=== PATIENT | female | born 1965 | race Caucasian/White ===

== ENCOUNTER 2020-07-23 15:07 | Inpatient (IN) | payer OTHER ==
--- OUTSIDE RECORDS SUMMARY | 2020-07-23 15:10 | XMS REPORT | Continuity of Care Document ---
:1965 Author Organization [facility] t Address [address] [place] [address] Care Team Providers Name Role Phone Unavailable Unavailable Unavailable Problems Condition Condition Condition Status Onset Resolution Last Treating Co mments Source Name Details Category Date Date Treatment Clinician Date Obesity Obesity Problem Active [facility] Essential Essential Problem Active [facility] hypertensi Hypertensi da on on [facility] Abnormal Abnormal Problem Active [facility] liver Liver da function Function Medica l Group Osteoarthr Osteoarthr Problem Active [facility] it[facility] Impaired Impaired Problem Active [facility] fasting Fasting da glycemia Glycemia Medica l Group Pain in Pain in Problem Active [facility] left knee Left Knee [facility] Allergies, Adverse Reactions, Alerts Allergy Allergy Status Severity Reaction(s) Onset Inactive Treating Comm ents Source Name Type Date Date Clinician PENICILL Allergy Active [facility] da [facility]stanc [facility] e [facility] SULFA Allergy Active [facility] (SULFONA to da MIDE substan Medical ANTIBIOT e Group ICS) Social History Smoking Status Start Date Stop Date Source Never Smoker [facility] Medications Ordered Filled Start Stop Current Ordering Indication Dosage Frequency Signature Comments Components Source Medication Medication Date Date Medication? Clinician (SIG) Name Name Bystolic 10 Bystolic 10 No Bystolic [facility] mg tablet mg tablet 10 mg da TAKE 1 TAKE 1 tablet Medical TABLET BY TABLET BY TAKE 1 Evans up MOUTH EVERY MOUTH EVERY TABLET BY DAY DAY MOUTH EVERY DAY diclofenac diclofenac No diclofenac [facility] 1 % topical 1 % topical 1 % d a gel APPLY 2 gel APPLY 2 topical Medical G TWICE A G TWICE A gel APPLY Group DAY BY DAY BY 2 G TWICE TOPICAL TOPICAL A DAY BY ROUTE ROUTE TOPICAL DIRECTED. DIRECTED. ROUTE DIRECTED. diclofenac diclofenac No diclofenac [facility] sodium 75 sodium 75 sodium 75 da mg mg mg Medical tablet,bertha tablet,bertha tablet,del Group yed release yed release ayed TAKE 1 TAKE 1 release TABLET BY TABLET BY TAKE 1 MOUTH TWICE MOUTH TWICE TABLET BY A DAY A DAY MOUTH TWICE A DAY ipratropium ipratropium No ipratropiu [facility] 0.5 0.5 m 0.5 da mg-albutero mg-albutero mg-albuter Medical l 3 mg (2.5 l 3 mg (2.5 ol 3 mg Group mg base)/3 mg base)/3 (2.5 mg mL mL base)/3 mL nebulizatio nebulizatio nebulizati n soln n soln on soln Inhale 3 mL Inhale 3 mL Inhale 3 4 times a 4 times a mL 4 times day by day by a day by nebulizatio nebulizatio nebulizati n route as n route as on route needed for needed for as needed 30 days. 30 days. for 30 days. phentermine phentermine No phentermin [facility] 37.5 mg 37.5 mg e 37.5 mg da tablet TAKE tablet TAKE tablet Medical 1 TABLET(S) 1 TABLET(S) TAKE 1 Group EVERY DAY EVERY DAY TABLET(S) BY ORAL BY ORAL EVERY DAY ROUTE ROUTE BY ORAL BEFORE BEFORE ROUTE MEALS MEALS BEFORE MEALS Symbicort Symbicort No Symbicort [facility] 160 mcg-4.5 160 mcg-4.5 160 d a mcg/actuati mcg/actuati mcg-4.5 Medical on HFA on HFA mcg/actuat Group aerosol aerosol ion HFA inhaler inhaler aerosol Inhale 2 Inhale 2 inhaler puffs twice puffs twice Inhale 2 a day by a day by puffs inhalation inhalation twice a route for route for day by 30 days. 30 days. inhalation route for 30 days. tramadol 50 tramadol 50 No tramadol [facility] mg tablet mg tablet 50 mg da TAKE 1 TAKE 1 tablet Medical TABLET BY TABLET BY TAKE 1 Evans up MOUTH THREE MOUTH THREE TABLET BY TIMES A DAY TIMES A DAY MOUTH NEEDED NEEDED THREE TIMES A DAY NEEDED triamcinolo triamcinolo No triamcinol [facility] ne ne one da acetonide acetonide acetonide Medical 0.1 % 0.1 % 0.1 % Group topical topical topical cream APPLY cream APPLY cream A THIN A THIN APPLY A LAYER TO LAYER TO THIN LAYER AFFECTED AFFECTED TO AREA TWICE AREA TWICE AFFECTED A DAY A DAY AREA TWICE A DAY Immunizations Ordered Immunization Filled Immunization Date Status Commen ts Source Name Name Tdap Tdap 2018-12-28 Completed [facility] Tdap Tdap 2018-12-26 Completed [facility] 12:11[facility]12 [facility] Vital Signs Vital Name Observation Time Observation Value Comments Source Height 2020-05-28 00:00:00 66 [in_i] [facility] BMI (Body Mass 2020-05-28 00:00:00 46.3 kg/m2 [facility] Body Weight 2020-05-28 00:00:00 4592 [oz_av] [facility] Height 2020-04-25 00:00:00 66 [in_i] [facility] BMI (Body Mass 2020-04-25 00:00:00 45.5 kg/m2 [facility] Body Weight 2020-04-25 00:00:00 4512 [oz_av] [facility] Height 2020-02-27 00:00:00 66 [in_i] [facility] BMI (Body Mass 2020-02-27 00:00:00 43.9 kg/m2 [facility] Body Weight 2020-02-27 00:00:00 4352 [oz_av] [facility] Height 2020-02-07 00:00:00 66 [in_i] [facility] BMI (Body Mass 2020-02-07 00:00:00 43.9 kg/m2 [facility] Body Weight 2020-02-07 00:00:00 4352 [oz_av] [facility] Height 2019-12-28 00:00:00 66 [in_i] [facility] BMI (Body Mass 2019-12-28 00:00:00 45.2 kg/m2 [facility] Body Weight 2019-12-28 00:00:00 4480 [oz_av] [facility] Height 2019-11-30 00:00:00 66 [in_i] [facility] BMI (Body Mass 2019-11-30 00:00:00 45.2 kg/m2 [facility] Body Weight 2019-11-30 00:00:00 4480 [oz_av] [facility] Height 2019-11-02 00:00:00 66 [in_i] [facility] BMI (Body Mass 2019-11-02 00:00:00 45.7 kg/m2 [facility] Body Weight 2019-11-02 00:00:00 4528 [oz_av] [facility] Height 2019-09-28 00:00:00 66 [in_i] [facility] BMI (Body Mass 2019-09-28 00:00:00 45.8 kg/m2 [facility] Body Weight 2019-09-28 00:00:00 4544 [oz_av] [facility] Height 2019-09-19 00:00:00 66 [in_i] [facility] BP Diastolic 2018-12-26 00:00:00 80 mm[Hg] [facility] Height 2018-12-26 00:00:00 66 [in_i] [facility] BMI (Body Mass 2018-12-26 00:00:00 45.8 kg/m2 [facility] BP Systolic 2018-12-26 00:00:00 140 mm[Hg] [facility] Body Weight 2018-12-26 00:00:00 4544 [oz_av] [facility] BP Diastolic 2018-11-09 00:00:00 80 mm[Hg] [facility] Height 2018-11-09 00:00:00 66 [in_i] [facility] BMI (Body Mass 2018-11-09 00:00:00 45.7 kg/m2 [facility] BP Systolic 2018-11-09 00:00:00 130 mm[Hg] [facility] Body Weight 2018-11-09 00:00:00 4528 [oz_av] [facility] BP Diastolic 2018-08-01 00:00:00 90 mm[Hg] [facility] Height 2018-08-01 00:00:00 66 [in_i] [facility] BMI (Body Mass 2018-08-01 00:00:00 43.3 kg/m2 [facility] Medical Index) Group BP Systolic 2018-08-01 00:00:00 149 mm[Hg] [facility] Body Weight 2018-08-01 00:00:00 4295 [oz_av] [facility] BP Diastolic 2018-07-04 00:00:00 86 mm[Hg] [facility] Height 2018-07-04 00:00:00 66 [in_i] [facility] BMI (Body Mass 2018-07-04 00:00:00 44.5 kg/m2 [facility] Medical Index) Group BP Systolic 2018-07-04 00:00:00 134 mm[Hg] [facility] Body Weight 2018-07-04 00:00:00 4416 [oz_av] [facility] BP Diastolic 2018-06-01 00:00:00 88 mm[Hg] [facility] Height 2018-06-01 00:00:00 66 [in_i] [facility] BMI (Body Mass 2018-06-01 00:00:00 44.2 kg/m2 [facility] Medical Index) Group BP Systolic 2018-06-01 00:00:00 146 mm[Hg] [facility] Body Weight 2018-06-01 00:00:00 4385 [oz_av] [facility] BP Diastolic 2018-04-11 00:00:00 84 mm[Hg] [facility] Height 2018-04-11 00:00:00 66 [in_i] [facility] BMI (Body Mass 2018-04-11 00:00:00 44.7 kg/m2 [facility] BP Systolic 2018-04-11 00:00:00 136 mm[Hg] [facility] Body Weight 2018-04-11 00:00:00 4432 [oz_av] [facility] Procedures Procedure Date / Time Performing Clinician Source Performed Knee Surgery 2011-03-15 00:00:00 [facility] Drainage of Skin Abscess [facility] Tubal Ligation [facility] Tonsillectomy [facility] Plan of Care Planned Activity Planned Date Details Comments Source Future Appointment 2020-07-28 Bobby Barnes 00:00:[address] [place] [address] [address]; [place] [id number] Encounters Start End Encounter Admission Attending Care Care Encounter Source Date/Time Date/Time Type Type Clinicians Facility Department ID 2020-05-28 2020-05-28 Norm HERNANDEZ [place] - [id number] [facility] 00:00:00 00:00:00 Jaime Fam MD: [address] [place] [address] [address], [place] [id number] , Ph. 2020-04-25 2020-04-25 Norm HERNANDEZ [place] - [id number] [facility] 00:00:00 00:00:00 Jaime Fam MD: [address] [place] [address] [address], [place] [address] , Ph. 2020-02-27 2020-02-27 Norm HERNANDEZ [place] - [id number] [facility] 00:00:00 00:00:00 Jaime Fam MD: [address] [place] [address] [address], [place] [address] , Ph. 2020-02-07 2020-02-07 Norm HERNANDEZ [place] - [id number] [facility] 00:00:00 00:00:00 Jaime Fam MD: [address] [place] [address] [address], [place] [address] , Ph. 2019-12-28 2019-12-28 Norm HERNANDEZ [place] - [id number] [facility] 00:00:00 00:00:00 Jaime Fam MD: [address] [place] [address] [address], [place] [address] , Ph. 2019-11-30 2019-11-30 Norm MMG [place] - [id number] [facility] 00:00:00 00:00:00 Jaime Fam MD: [address] [place] [address], [place] [address] , Ph. 2019-11-02 2019-11-02 Norm MMG [place] - [id number] [facility] 00:00:00 00:00:00 Jaime Fam MD: [address] [place] [address] [address], [place] [address] , Ph. 2019-09-28 2019-09-28 Norm MMG [place] - [id number] [facility] 00:00:00 00:00:00 Jaime Fam MD: [address] [place] [address] [address], [place] [address] , Ph. 2019-09-19 2019-09-19 Norm MMG [place] - [id number] [facility] 00:00:00 00:00:00 Jaime Fam MD: [address] [place] [address], [place] [address] , Ph. 2019-07-25 2019-07-25 Norm MMG [place] - [id number] [facility] 00:00:00 00:00:00 Jaime Fam MD: [address] [place] [address], [place] [address] , Ph. 2018-12-26 2018-12-26 Norm MMG [place] - [id number] [facility] 00:00:00 00:00:00 Jaime Fam MD: [address] [place] [address] [address], [place] [address] , Ph. 2018-11-09 2018-11-09 Norm MMG [place] - [id number] [facility] 00:00:00 00:00:00 Jaime Fam MD: [address] [facility] [address], [place] [address] , Ph. 2018-08-01 2018-08-01 Norm MMG [place] - [id number] [facility] 00:00:00 00:00:00 Jaime Fam MD: [address] [facility] [address], [place] [address] , Ph. 2018-07-04 2018-07-04 Norm MMG [place] - [id number] [facility] 00:00:00 00:00:00 Jaime Fam MD: [address] [facility] [address], [place] [address] , Ph. 2018-06-01 2018-06-01 Norm MMG [place] - [id number] [facility] 00:00:00 00:00:00 Jaime Fam MD: [address] [facility] [address], [place] [address] , Ph. 2018-04-11 2018-04-11 Norm MMG [place] - [id number] [facility] 00:00:00 00:00:00 Jaime Fam MD: [address] [facility] [address], [place] [address] , Ph. Results Test Description Test Time Test Comments Results Result Comments Source rapid flu (A+B) 2018-06-10 07:55:00 Test Item Value Reference Range Interpretation Comme nts Flu (test code = Flu) negative [facility]
[2020-07-23 16:18] LABS: Urine Blood 3+ (Negative); Urine Glucose Negative (Negative); Urine Protein 3+ (Negative)
[2020-07-23 17:18] LABS: Urine RBC 20-50 /HPF (NONE SEEN)
[2020-07-23 17:19] LABS: Urine Bacteria >50 /HPF (<20)
[2020-07-23 17:23] LABS: Basophils % 0.4 % (0-1.3); Hematocrit 38.4 % (36.0-45.0); Lymphocytes % 7.2 % (15.3-44.8); MPV 9.4 fL (7.6-11.3); RBC Red Blood Cell Count 4.04 M/uL (3.86-4.86)
[2020-07-23 17:37] LABS: Albumin 3.6 g/dL (3.4-5.0); Bilirubin Direct 0.2 mg/dL (0-0.2); Bilirubin Total 0.9 mg/dL (0.2-1.0); Potassium 3.9 mmol/L (3.5-5.1); Protein, Total 7.4 g/dL (6.4-8.2)
--- NOTE | 2020-07-23 18:17 | RAD REPORT ---
EXAM DESCRIPTION: CT - Abdomen Pelvis W Contrast - 07/23/2020 5:52 pm CLINICAL HISTORY: left sided abd pain COMPARISON: No comparisons TECHNIQUE: Biphasic, helical CT imaging of the abdomen and pelvis was performed following 100 ml non -ionic IV contrast. No oral contrast. All CT scans are performed using dose optimization technique as appropriate and may include automated exposure control or mA/KV adjustment according to patient size. FINDINGS: No suspicious findings in the lung bases. Diffuse fatty infiltration is present in the liver. No focal liver lesion. No portal vein abnormality . The spleen, pancreas, gallbladder and biliary tree show no suspicious findings. 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 Normal right renal parenchymal enhancement. No right-sided hydronephrosis or obstructing calculus. Le ft kidney shows heterogeneous enhancement of the parenchyma with stranding in the perinephric fat. Th ere is mild dilatation of the left ureter but no obstructing calculus. No solid mass lesion of either kidney. Contracted urinary bladder shows no gross abnormality. No uterine or ovarian suspicious find ing. No adrenal abnormalities. No dilated bowel loops or bowel wall thickening. No free air, free fluid or inflammatory stranding. No hernia, mass or bulky lymphadenopathy. No suspicious bony findings. IMPRESSION: Left-sided pyelonephritis without abscess or focal mass lesion. Mild left-sided hydronephrosis probably due to inflammatory debris in the ureter. No obstructing or n onobstructing calculi.
[2020-07-23] MEDS ORDERED: MEPERIDINE HCL 25 MG/ML SYR ONE (18:31)
[2020-07-23] MEDS ORDERED: ONDANSETRON 4 MG/2 ML VIAL ONE ×2 (18:34→21:36)
--- NOTE | 2020-07-23 18:46 | EDPHYS ---
Physician Documentation [facility] Name: Raven Mccullough Age: 54 yrs Sex: Female : 1965 Arrival Date: 07/23/2020 Time: 15:11 Bed 4 Private MD: ED Physician Adán Padilla HPI: 07/23 16:13 This 54 yrs old Female presents to ER via Ambulatory with complaints of Pain rn All Over. 16:13 Reports lower back pain, malaise, subjective fever and chills, present for a week since rn got dose of covid vaccine, had COVID last year. Denies cough/sob/vomiting/diarrhea. No loss of taste or smell. No chest pain.. Onset: The symptoms/episode began/occurred 1 week(s) ago. Severity of symptoms: At their worst the symptoms were mild in the emergency department the symptoms are unchanged. The patient has not experienced similar symptoms in the past. The patient has not recently seen a physician. 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 - Social history:: Smoking status: . - Family history:: not pertinent. - Hospitalizations: : No recent hospitalization is reported. ROS: 16:13 Constitutional: + subjective fever and chills Eyes: Negative for injury, pain, redness, rn and discharge, Neck: Negative for injury, pain, and swelling, Cardiovascular: Negative for chest pain, palpitations, and edema, Respiratory: Negative for shortness of breath, cough, wheezing, and pleuritic chest pain, Abdomen/GI: + mild left sided abd discomfort. Neg for vomiting/diarrhea Back: + lower back pain : Negative for injury, bleeding, discharge, and swelling, MS/Extremity: Negative for injury and deformity, Skin: Negative for injury, rash, and discoloration, Neuro: Negative for headache, numbness, tingling, and seizure. Exam: 16:13 Constitutional: This is a well developed, well nourished patient who is awake, alert, rn and in no acute distress. Head/Face: Normocephalic, atraumatic. Eyes: Periorbital areas with no swelling, redness, or edema. ENT: MMM Cardiovascular: Regular rate and rhythm. No pulse deficits. Respiratory: No increased work of breathing, no retractions or nasal flaring. Abdomen/GI: Soft, no focal tenderness, no rebound Back: No spinal tenderness. No costovertebral tenderness. Full range of motion. Skin: Warm, dry MS/ Extremity: Pulses equal, no cyanosis. Neuro: Awake and alert, GCS 15 Vital Signs: 15:13 BP 177 / 91; Pulse 95; Resp 17; Temp 98.6(TE); Pulse Ox 95% on R/A; Weight 127.01 kg tw2 (R); Height 5 ft. 6 in. (167.64 cm); Pain 7/10; 18:24 Pulse 94; Resp 16 S; Temp 98.3(O); Pulse Ox 97% on R/A; jd3 20:00 BP 177 / 85; Pulse 102; Resp 20; Pulse Ox 98% ; rr5 21:00 BP 166 / 89; Pulse 90; Resp 17; Pulse Ox 98% ; rr5 21:40 BP 144 / 75; Pulse 95; Resp 19; Pulse Ox 95% ; rr5 15:13 Body Mass Index 45.19 (127.01 kg, 167.64 cm) tw2 MDM: 15:31 Patient medically screened. rn 18:43 Differential Diagnosis sepsis, UTI, pyelonephritis. Data reviewed: vital signs, nurses rn notes, lab test result(s), radiologic studies, CT scan, and as a result, I will admit patient. Counseling: I had a detailed discussion with the patient and/or guardian regarding: the historical points, exam findings, and any diagnostic results supporting the discharge/admit diagnosis, lab results, radiology results, the need for further work-up and treatment in the hospital. Response to treatment: the patient's symptoms have mildly improved after treatment, and as a result, I will admit patient. Admission orders: after a detailed discussion of the patient's condition and case, the admit orders are written by me. ED course: CT shows pyelonephritis, mild hydro but no obstruction and likely related to debris not stone. Stable vitals. Ordered levaquin given sulfa and PCN allergy.. 05 15:39 Order name: Urine Culture rn 07/23 15:39 Order name: Urine Microscopic Only; Complete Time: 17:23 rn 07/23 16:18 Order name: Urine Dipstick-Ancillary; Complete Time: 17:23 EDMS 07/23 16:19 Order name: Basic Metabolic Panel; Complete Time: 18:20 rn 07/23 16:19 Order name: CBC with Diff rn 07/23 16:19 Order name: Hepatic Function; Complete Time: 18:20 rn 07/23 16:19 Order name: Lipase; Complete Time: 18:20 rn 07/23 16:25 Order name: Urine --Ancillary (enter results) bd 07/23 16:26 Order name: Urine --Ancillary EDMS 07/23 17:58 Order name: Manual Differential EDMS 07/23 18:22 Order name: Blood Culture Adult (2) rn 07/23 18:22 Order name: Procalcitonin 07/23 18:22 Order name: Lactate rn 07/23 18:44 Order name: COVID-19 : Document "Date of Symptom Onset" if Symptomatic. aa5 07/23 15:39 Order name: Urine Dipstick-Ancillary (obtain specimen); Complete Time: 17:05 07/23 16:19 Order name: IV Saline Lock; Complete Time: 17:05 07/23 16:19 Order name: Labs collected and sent; Complete Time: 17:05 07/23 16:19 Order name: CT Abd/Pelvis - IV Contrast Only; Complete Time: 18:20 rn 07/23 21:20 Order name: SARS-COV-2 RT PCR EDMS Administered Medications: 18:21 Drug: Demerol (meperidine) 25 mg Route: IVP; Site: right forearm; jd3 19:13 Follow up: Response: Pain is decreased bp 18:21 Drug: Zofran (Ondansetron) 4 mg Route: IVP; Site: right forearm; jd3 19:13 Follow up: Response: No adverse reaction bp 19:00 Drug: LevaQUIN (levofloxacin) 750 mg Route: IVPB; Site: right forearm; bp 21:30 Follow up: Response: No adverse reaction; IV Status: Completed infusion ea 19:00 Drug: NS 0.9% 1000 ml Route: IV; Rate: 1 bolus; Site: right forearm; bp 21:30 Follow up: Response: No adverse reaction; IV Status: Completed infusion; IV Intake: ea 1000ml 19:00 Drug: NS 0.9% 1000 ml Route: IV; Rate: 125 ml/hr; Site: right forearm; bp 21:29 Follow up: Response: No adverse reaction; IV Status: Infusion continued upon admission ea 19:11 CANCELLED (Physician Discretion): Magnesium Sulfate 2 grams IVPB once over 1 hrs bp Disposition: 07/23/20 18:45 Hospitalization ordered by [place] Padilla for Inpatient Admission. Preliminary diagnosis is Pyelonephritis. - Bed requested for Telemetry/MedSurg (Inpatient). - Status is Inpatient Admission. rr5 - Condition is Stable. - Problem is new. - Symptoms have improved. Signatures: Dispatcher [employer] [facility] Rashmi Ying RN RN mw Nieto, Roman, MD MD rn Abram West, BOILERMAKER-C BOILERMAKER-Cla1 Kailyn Valdes RN RN tw2 Brody Starkey RN RN jd3 Marty Saez RN RN bp Chico Ibarra, PASCUAL GARNER rr5 Sirisha Gutierrez RN, ea Corrections: (The following items were deleted from the chart) 19:11 19:07 Magnesium Sulfate 2 grams IVPB once over 1 hrs ordered. bp bp 19:11 19:07 Magnesium Sulfate 2 grams IVPB once over 1 hrs given. bp bp 19:11 19:11 Magnesium Sulfate 2 grams IVPB once over 1 hrs ordered. bp bp 20:05 18:45 CORONAVIRUS ordered. EDNH EDMS 21:27 18:45 Hospitalization Ordered by Ch[place] Padilla MD for Inpatient Admission. Preliminary mw diagnosis is Pyelonephritis. Bed requested for Telemetry/MedSurg (Inpatient). Status is Inpatient Admission. Condition is Stable. Problem is new. Symptoms have improved. rn 21:58 21:27 07/23/2020 18:45 Hospitalization Ordered by Ch[place] Padilla MD for Inpatient rr5 Admission. Preliminary diagnosis is Pyelonephritis. Bed requested for Telemetry/MedSurg (Inpatient). Status is Inpatient Admission. Condition is Stable. Problem is new. Symptoms have improved. mw
--- NOTE | 2020-07-23 18:46 | ER ---
Nurse's Notes [facility] Name: Raven Mccullough Age: 54 yrs Sex: Female : 1965 Arrival Date: 07/23/2020 Time: 15:11 Bed 4 Private MD: Diagnosis: Pyelonephritis Presentation: 07/23 15:13 Chief complaint: Patient states: Last Wednesday I had the first Pfizer vaccine and my tw2 lymph nodes on my neck and my neck felt swollen. i just havent felt good since then. seems to be getting worse. i had covid a year ago and this seems worse. i ache all over. i am nauseous and the fever. Coronavirus screen: chills, fatigue, fever, muscle pain, nausea, Client presents with at least one sign or symptom that may indicate coronavirus-19. Standard/surgical mask placed on the client. Provider contacted for isolation considerations. Ebola Screen: Patient denies travel to an Ebola-affected area in the 21 days before illness onset. Initial Sepsis Screen: Does the patient meet any 2 criteria? HR > 90 bpm. No. Patient's initial sepsis screen is negative. Does the patient have a suspected source of infection? No. Patient's initial sepsis screen is negative. Risk Assessment: Do you want to hurt yourself or someone else? Patient reports no desire to harm self or others. Onset of symptoms was July 23, 2020. 15:13 Method Of Arrival: Ambulatory tw2 15:13 Acuity: LUZ 3 tw2 15:17 Chief complaint: Patient states: i also feel like i have a UTI as well. tw2 Triage Assessment: 15:17 General: Appears in no apparent distress. uncomfortable, obese, well groomed, Behavior tw2 is calm, cooperative, appropriate for age. Pain: Complains of pain in back and body aches. : Reports burning with urination. 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 - Social history:: Smoking status: . - Family history:: not pertinent. - Hospitalizations: : No recent hospitalization is reported. Screenin:27 Abuse screen: Denies threats or abuse. Nutritional screening: No deficits noted. jd3 Tuberculosis screening: No symptoms or risk factors identified. Fall Risk Ambulatory Aid- None/Bed Rest/Nurse Assist (0 pts). Gait- Normal/Bed Rest/Wheelchair (0 pts) Mental Status- Oriented to own ability (0 pts). Total Lara Fall Scale indicates No Risk (0-24 pts). Assessment: 15:30 General: Appears in no apparent distress. uncomfortable, Behavior is calm, cooperative, jd3 appropriate for age. Pain: Complains of pain in low back area and abdomen Quality of pain is described as aching. Neuro: Level of Consciousness is awake, alert, obeys commands, Oriented to person, place, time, situation. Cardiovascular: Denies chest pain, Capillary refill < 3 seconds Patient's skin is warm and dry. Respiratory: Airway is patent Respiratory effort is even, unlabored, Respiratory pattern is regular, symmetrical, Denies cough, shortness of breath. GI: Abdomen is round non-distended, Reports nausea. : No signs and/or symptoms were reported regarding the genitourinary system. EENT: No signs and/or symptoms were reported regarding the EENT system. Derm: Skin is intact, Skin is dry, Skin is normal, Skin temperature is warm. Musculoskeletal: Circulation, motion, and sensation intact. Range of motion: intact in all extremities. 16:30 Reassessment: Patient appears in no apparent distress at this time. No changes from jd3 previously documented assessment. Patient and/or family updated on plan of care and expected duration. Pain level reassessed. Patient is alert, oriented x 3, equal unlabored respirations, skin warm/dry/pink. 17:07 Reassessment: Patient appears in no apparent distress at this time. No changes from jd3 previously documented assessment. Patient and/or family updated on plan of care and expected duration. Pain level reassessed. Patient is alert, oriented x 3, equal unlabored respirations, skin warm/dry/pink. 18:23 Reassessment: Patient appears in no apparent distress at this time. Patient and/or jd3 family updated on plan of care and expected duration. Pain level reassessed. Patient is alert, oriented x 3, equal unlabored respirations, skin warm/dry/pink. pt medicated for pain, pt reports chills, no fever at this time, provider notified. 19:32 General: Appears in no apparent distress. Behavior is appropriate for age. Pain: ea Complains of pain in low back area. Neuro: Level of Consciousness is awake, alert, obeys commands, Oriented to person, place, time, situation. Cardiovascular: Patient's skin is warm and dry. Respiratory: Airway is patent Respiratory effort is even, unlabored, Respiratory pattern is regular, symmetrical. Derm: Skin is dry, Skin is pale, Skin temperature is warm. 20:35 Reassessment: Patient and/or family updated on plan of care and expected duration. Pain ea level reassessed. Pt resting with eyes closed, respirations even and unlabored. Chest expansions even and symmetrical. 21:31 Reassessment: Patient and/or family updated on plan of care and expected duration. Pain ea level reassessed. Patient is alert, oriented x 3, equal unlabored respirations, skin warm/dry/pink. Vital Signs: 15:13 BP 177 / 91; Pulse 95; Resp 17; Temp 98.6(TE); Pulse Ox 95% on R/A; Weight 127.01 kg tw2 (R); Height 5 ft. 6 in. (167.64 cm); Pain 7/10; 18:24 Pulse 94; Resp 16 S; Temp 98.3(O); Pulse Ox 97% on R/A; jd3 20:00 BP 177 / 85; Pulse 102; Resp 20; Pulse Ox 98% ; rr5 21:00 BP 166 / 89; Pulse 90; Resp 17; Pulse Ox 98% ; rr5 21:40 BP 144 / 75; Pulse 95; Resp 19; Pulse Ox 95% ; rr5 15:13 Body Mass Index 45.19 (127.01 kg, 167.64 cm) tw2 ED Course: 15:11 Patient arrived in ED. mr 15:16 Triage completed. tw2 15:17 Arm band placed on. tw2 15:25 Brody Starkey, RN is Primary Nurse. jd3 15:27 Patient has correct armband on for positive identification. Bed in low position. Call jd3 light in reach. Side rails up X 1. Pulse ox on. NIBP on. 15:30 Adán Padilla MD is Attending Physician. rn 16:55 Missed attempt(s): 22 gauge in left antecubital area. Bleeding controlled, band aid jd3 applied, catheter tip intact. Missed attempt(s): 20 gauge in left antecubital area. Bleeding controlled, band aid applied, catheter tip intact. 17:00 Initial lab(s) drawn, by me, sent to lab. Inserted saline lock: 22 gauge in right aa5 forearm, using aseptic technique. Blood collected. 17:52 CT Abd/Pelvis - IV Contrast Only In Process Unspecified. EDMS 18:45 Chico Padilla MD is Hospitalizing Provider. rn 19:33 No provider procedures requiring assistance completed. Patient admitted, IV remains in ea place. Administered Medications: 18:21 Drug: Demerol (meperidine) 25 mg Route: IVP; Site: right forearm; jd3 19:13 Follow up: Response: Pain is decreased bp 18:21 Drug: Zofran (Ondansetron) 4 mg Route: IVP; Site: right forearm; jd3 19:13 Follow up: Response: No adverse reaction bp 19:00 Drug: LevaQUIN (levofloxacin) 750 mg Route: IVPB; Site: right forearm; bp 21:30 Follow up: Response: No adverse reaction; IV Status: Completed infusion ea 19:00 Drug: NS 0.9% 1000 ml Route: IV; Rate: 1 bolus; Site: right forearm; bp 21:30 Follow up: Response: No adverse reaction; IV Status: Completed infusion; IV Intake: ea 1000ml 19:00 Drug: NS 0.9% 1000 ml Route: IV; Rate: 125 ml/hr; Site: right forearm; bp 21:29 Follow up: Response: No adverse reaction; IV Status: Infusion continued upon admission ea 19:11 CANCELLED (Physician Discretion): Magnesium Sulfate 2 grams IVPB once over 1 hrs bp Intake: 21:30 IV: 1000ml; Total: 1000ml. ea Outcome: 18:45 Decision to Hospitalize by Provider. rn 19:33 Instructed on the need for admit, Demonstrated understanding of instructions. ea 21:37 Condition: stable ea 21:37 Admitted to Med/surg accompanied by nurse, via stretcher, room 214, with chart, Report rr5 called to [facility] 21:37 Condition: stable 21:58 Patient left the ED. rr5 Signatures: Dispatcher [employer] Kathy VicenteAdán MD MD rn Calderon, Audri, RN RN aa5 Kailyn Valdes RN RN tw2 Sirisha Gutierrez RN RN Brody Hardin RN RN jd3 Marty Saez RN RN bp Chico Ibarra RN RN rr5 Corrections: (The following items were deleted from the chart) 19:11 19:07 Magnesium Sulfate 2 grams IVPB in Port-a-cath over 1 hrs bp bp 19:13 18:45 Reassessment: PT NON-COMPLIANT WITH BIPAP, PULLING MASK. REDIRECTED MULTIPLE bp TIMES. NOW ALTERED, NON-VERBAL AND MINIMALLY RESPONSIVE. PROVIDER AT B/S bp 21:40 21:36 BP 166 / 89; Pulse 90bpm; Resp 17bpm; Pulse Ox 98%; rr5 rr5
[2020-07-23] MEDS ORDERED: Levofloxacin 750mg IV 750 MG/150 ML BAG IV ONE (19:04)
[2020-07-23] MEDS ORDERED: NA CHLORIDE 0.9% 2,000 ML ONE (19:04)
[2020-07-23 19:14] LABS: Blood Morphology Comment NOT SEEN (NOT SEEN); Platelet Estimate ADEQ
--- NOTE | 2020-07-23 19:25 | P.HP ---
Certification for Inpatient Patient admitted to: Inpatient With expected LOS: >2 Midnights Patient will require the following post-hospital care: None Practitioner: I am a practitioner with admitting privileges, knowledge of patient current condition, hospital course, and medical plan of care. Services: Services provided to patient in accordance with Admission requirements found in Title 42 Section 412.3 of the Code of Federal Regulations Patient History Date of Service: 07/23/20 Reason for admission: Pyelonephritis History of Present Illness: 54-year-old female with history of hypertension, arthritis presents emergency department for dysuria, flank pain for the last 2 days. Patient evaluated in the emergency department, labs significant for white blood cell count 14.1, urine with greater than [address] bacteria on microscopic analysis CT abdomen pelvis with contrast demonstrates left-sided pyelonephritis without abscess or focal mass lesion, mild left-sided hydronephrosis probably due to inflammatory debris in the ureter without obstructing or nonobstructing calculi. Patient still significantly uncomfortable in the emergency department with some nausea, ED provider wishes to admit for further evaluation and management of pyelonephritis. 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 moist/pink Neck: Supple, 2+ carotid pulse no bruit, No LAD Respiratory: Clear to auscultation bilaterally, Normal air movement Cardiovascular: Regular rate/rhythm, Normal S1 S2 Gastrointestinal: Normal bowel sounds, No tenderness Musculoskeletal: No tenderness Integumentary: No rashes Neurological: Normal speech, Normal strength at 5/5 x4 extr, Normal tone, Normal affect - Studies Laboratory Data (last 24 hrs) 07/23/20 17:00: WBC 14.10 H, Hgb 12.9, Hct 38.4, Plt Count 281 07/23/20 17:00: Sodium 138, Potassium 3.9, BUN 18, Creatinine 0.94, Glucose 122 H, Total Bilirubin 0.9, AST 11 L, ALT 37, Alkaline Phosphatase 121 H, Lipase 102 Assessment and Plan - Plan Assessment Acute left-sided pyelonephritis with mild hydronephrosis Hypertension Plan Acute left-sided pyelonephritis with mild hydronephrosis: Continue with IV Levaquin, blood in urine cultures obtained, will follow. P.r.n. pain medications and anti emetics. Daily labs, clear liquid diet advance as tolerated. DVT prophylaxis Lovenox 40 mg subcutaneous once daily. Anticipate clinical improvement over the course of the next 24-48 hr. Will need to wait for urine culture. Hypertension: Obtain and continue home medications as appropriate. Discharge Plan: Home Plan to discharge in: 48 Hours - Advance Directives Does patient have a Living Will: No Does patient have a Durable POA for Healthcare: No - Code Status/Comfort Care Code Status Assessed: Yes (Full code) Critical Care: No Time Spent Managing Pts Care (In Minutes): 55
[2020-07-23] MEDS: ONDANSETRON 4 MG/2 ML VIAL IV PRN (21:22)
[2020-07-23] MEDS: MORPHINE 2 MG/ML SYR IV PRN (21:22)
[2020-07-23] MEDS ORDERED: MORPHINE 2 MG/ML SYR ONE (21:36)
[2020-07-23] MEDS: NA CHLORIDE 0.9% 1,000 ML IV SCH (22:14)
[2020-07-23] MEDS: HYDROCODONE/APAP 7.5/325 MG TAB PO PRN (22:27)
[2020-07-23 23:06] VITALS: BMI 46.0
[2020-07-24] MEDS: ACETAMINOPHEN 500 MG TAB PO PRN ×2 (01:55→05:53)
[2020-07-24] MEDS: ONDANSETRON 4 MG/2 ML VIAL IV PRN (03:29)
[2020-07-24] MEDS: MORPHINE 2 MG/ML SYR IV PRN ×4 (03:29→21:15)
[2020-07-24] MEDS ORDERED: NA CHLORIDE 0.9% 500 ML IV ONE (04:55)
[2020-07-24] MEDS: NA CHLORIDE 0.9% 1,000 ML IV SCH ×3 (05:44→21:45)
[2020-07-24 05:49] LABS: Absolute Lymphocytes (CBC) 1.1 K/uL (0.7-4.9); Basophils % 0.4 % (0-1.3); Hematocrit 32.1 % (36.0-45.0); Lymphocytes % 9.1 % (15.3-44.8); RBC Red Blood Cell Count 3.39 M/uL (3.86-4.86)
[2020-07-24 05:58] LABS: Albumin 2.9 g/dL (3.4-5.0); Bilirubin Total 0.8 mg/dL (0.2-1.0); Magnesium 2.1 mg/dL (1.8-2.4); Potassium 3.8 mmol/L (3.5-5.1); Protein, Total 6.3 g/dL (6.4-8.2)
[2020-07-24] MEDS: ENOXAPARIN 40 MG/0.4 ML SQ SCH (08:35)
[2020-07-24] MEDS ORDERED: POTASSIUM CL SA 10 MEQ TAB PO ONE (09:00)
[2020-07-24] MEDS: HYDROCODONE/APAP 7.5/325 MG TAB PO PRN ×2 (11:22→18:14)
--- NOTE | 2020-07-24 16:36 | P.PN ---
Subjective Date of Service: 07/24/20 Chief Complaint: Pyelonephritis Subjective: No new changes (no significant change in symptoms since admission. continues with pain, improved temporarily with pain medication. no nausea/vomiting) Review of Systems 10-point ROS is otherwise unremarkable Physical Examination - Vital Signs Temperature: 99.1 F Blood Pressure: 136/61 Pulse: 118 Respirations: 18 Pulse Ox (%): 92 - Studies Laboratory Data (last 24 hrs) 07/23/20 17:00: WBC 14.10 H, Hgb 12.9, Hct 38.4, Plt Count 281 07/23/20 17:00: Sodium 138, Potassium 3.9, BUN 18, Creatinine 0.94, Glucose 122 H, Total Bilirubin 0.9, AST 11 L, ALT 37, Alkaline Phosphatase 121 H, Lipase 102 Assessment & Plan Physician Review Additional Text: Physical Exam General: Alert, in discomfort HEENT: normal conjunctiva, sclera anicteric Respiratory: Clear to auscultation bilaterally, Normal air movement Cardiovascular: sinus tachycardia 90-110, no murmur Abd: soft, mild tender suprapubic tenderness, nondistended MSk: No tenderness Integumentary: No rashes Problem List Acute left-sided pyelonephritis with mild hydronephrosis Hypertension -continue IV levaquin, f/u blood and urine cultures -PRN pain medication, anti-emetics as well -CLD, ADAT -leukocytosis improved -continue to f/u labs, monitor UOP / vitals -continue IVF VTE: lovenox Code: full Dispo: anticipate dc home in ~48hrs Time Spent Managing Pts Care (In Minutes): 35
[2020-07-24] MEDS: Levofloxacin500mg IV 500 MG/100 ML BAG IV SCH (17:14)
[2020-07-25] MEDS: HYDROCODONE/APAP 7.5/325 MG TAB PO PRN ×4 (00:25→19:42)
[2020-07-25] MEDS: MORPHINE 2 MG/ML SYR IV PRN ×4 (04:23→23:44)
[2020-07-25] MEDS: NA CHLORIDE 0.9% 1,000 ML IV SCH ×2 (04:30→11:25)
[2020-07-25 05:38] LABS: Absolute Lymphocytes (CBC) 1.6 K/uL (0.7-4.9); Basophils % 0.4 % (0-1.3); Hematocrit 30.4 % (36.0-45.0); Lymphocytes % 19.8 % (15.3-44.8); MPV 8.8 fL (7.6-11.3); RBC Red Blood Cell Count 3.22 M/uL (3.86-4.86)
[2020-07-25 05:58] LABS: ALT/SGPT 25 U/L (12-78); AST/SGOT 9 U/L (15-37); Albumin 2.6 g/dL (3.4-5.0); Alkaline Phosphatase 94 U/L (45-117); BUN Blood Urea Nitrogen 9 mg/dL (7-18); Bicarbonate 25 mmol/L (21-32); Bilirubin Total 0.5 mg/dL (0.2-1.0); Glucose Level 106 mg/dL (74-106); Magnesium 2.5 mg/dL (1.8-2.4); Potassium 3.9 mmol/L (3.5-5.1); Protein, Total 6.4 g/dL (6.4-8.2); Sodium Level 137 mmol/L (136-145)
[2020-07-25] MEDS: ENOXAPARIN 40 MG/0.4 ML SQ SCH (07:51)
[2020-07-25] MEDS ORDERED: POTASSIUM CL SA 10 MEQ TAB PO ONE (09:00)
--- NOTE | 2020-07-25 16:24 | P.PN ---
Subjective Date of Service: 07/25/20 Chief Complaint: Pyelonephritis Subjective: Improving (slight improvement in symptoms, no acute events overnight. minimal appetite, no nausea/vomtiing, no diarrhea. pain somewhat improved) Physical Examination - Vital Signs Temperature: 97.6 F Blood Pressure: 129/74 Pulse: 96 Respirations: 18 Pulse Ox (%): 95 - Studies Microbiology Data (last 24 hrs): 07/23/20 16:16 Clean Catch Urine [place] Count - Final >100,000 CFU/ML. 07/23/20 16:16 Clean Catch Urine - Final Escherichia Coli Assessment & Plan Physician Review Additional Text: Physical Exam General: Alert, NAD HEENT: normal conjunctiva, sclera anicteric Respiratory: Clear to auscultation bilaterally, Normal air movement Cardiovascular: regular rate and rhythm, no murmur Abd: soft, mild suprapubic tenderness, nondistended MSk: No tenderness Integumentary: No rashes Problem List Acute left-sided pyelonephritis with mild hydronephrosis Hypertension -continue IV levaquin, f/u blood and urine cultures - e.coli +, blood positive with GNR -ID consulted, repeat blood culture today -PRN pain medication, anti-emetics as well -not eating much, continue IVF this morning -leukocytosis improved -continue to f/u labs, monitor UOP / vitals VTE: lovenox Code: full Dispo: anticipate dc home in ~48hrs, sensitive e.coli, likely won't need IV antibiotics, but blood cultures still pending Time Spent Managing Pts Care (In Minutes): 40
[2020-07-25] MEDS: Levofloxacin500mg IV 500 MG/100 ML BAG IV SCH (17:01)
[2020-07-26] MEDS: HYDROCODONE/APAP 7.5/325 MG TAB PO PRN ×3 (03:42→19:40)
[2020-07-26 05:41] LABS: Absolute Lymphocytes (CBC) 1.8 K/uL (0.7-4.9); Basophils % 0.7 % (0-1.3); Hematocrit 31.5 % (36.0-45.0); Lymphocytes % 33.9 % (15.3-44.8); MPV 9.6 fL (7.6-11.3); RBC Red Blood Cell Count 3.36 M/uL (3.86-4.86)
[2020-07-26 05:58] LABS: BUN Blood Urea Nitrogen 9 mg/dL (7-18); Bicarbonate 27 mmol/L (21-32); Glucose Level 113 mg/dL (74-106); Potassium 4.3 mmol/L (3.5-5.1); Sodium Level 141 mmol/L (136-145)
[2020-07-26] MEDS: ENOXAPARIN 40 MG/0.4 ML SQ SCH (07:35)
[2020-07-26] MEDS: MORPHINE 2 MG/ML SYR IV PRN ×3 (07:35→22:57)
--- NOTE | 2020-07-26 10:53 | P.CNS ---
Date of Consult: 07/26/20 Chief Complaint: Pyelonephritis History of Present Illness: The patient is a 54-year-old female with a past medical history of hypertension and arthritis who presented to the emergency department to do dysuria, flank pain, and general malaise to the past few days. Patient states that she had recently got her 1st dose of the Pfizer COVID 19 vaccination and initially thought her symptoms were due body's reaction to the vaccine however symptoms progressively worsened. Labs in the ED significant for WBC of 14.1, UA positive, and CT abdomen of pelvis is showing a left-sided pyelonephritis without abscess or focal mass lesion. Also showed mild left-sided hydronephrosis probably due to the inflammatory to degrees in the ureteral as there is no obstruction or stone noted. Urine culture grew E coli. Blood culture taken on 07/23: first bottle grew gram-negative rods, awaiting final report; 2nd filed grew ConS-awaiting full report. Second vile likely contaminated. Patient denies nausea, vomiting, diarrhea, [place] breath, chest pain. Patient still reports pain to her left lower quadrant but extends up to her left flank that is worse with course with inhalation. Patient states the pain has improved since admission. 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 - Family History Father Medical History: Heart disease, Cancer - Social History Alcohol use: No CD- Drugs: No Caffeine use: Yes Place of Residence: Home Review of Systems 10-point ROS is otherwise unremarkable Physical Examination Temp Pulse Resp BP Pulse Ox 97.1 F 82 18 181/88 H 94 07/26/20 08:00 07/26/20 08:00 07/26/20 08:00 07/26/20 08:00 07/26/20 08:00 General: Alert, In no apparent distress, Obese HEENT: Atraumatic, Normocephalic Neck: Supple, 2+ carotid pulse no bruit Respiratory: Clear to auscultation bilaterally, Normal air movement Cardiovascular: No edema, Normal pulses Capillary refill: <2 Seconds Gastrointestinal: Normal bowel sounds Musculoskeletal: No clubbing, No swelling Integumentary: No rashes, No breakdown, No significant lesion, No tenderness/swelling Neurological: Normal gait, Normal speech Temp Pulse Resp BP Pulse Ox 97.1 F 82 18 181/88 H 94 07/26/20 08:00 07/26/20 08:00 07/26/20 08:00 07/26/20 08:00 07/26/20 08:00 Laboratory Last Values WBC 14.10 K/uL (4.3-10.9) H 07/23/20 17:00 RBC 4.04 M/uL (3.86-4.86) 07/23/20 17:00 Hgb 12.9 g/dL (12.0-15.0) 07/23/20 17:00 Hct 38.4 % (36.0-45.0) 07/23/20 17:00 MCV 95.0 fL (80-100) 07/23/20 17:00 MCH 32.0 pg (27.0-35.0) 07/23/20 17:00 MCHC 33.6 g/dL (32.0-36.0) 07/23/20 17:00 RDW 13.2 % (12.1-15.2) 07/23/20 17:00 Plt Count 281 K/uL (152-406) 07/23/20 17:00 MPV 9.4 fL (7.6-11.3) 07/23/20 17:00 Neutrophils % 87.4 % (41.7-73.7) H 07/23/20 17:00 Lymphocytes % 7.2 % (15.3-44.8) L 07/23/20 17:00 Monocytes % 4.9 % (3.3-12.3) 07/23/20 17:00 Eosinophils % 0.1 % (0-4.4) 07/23/20 17:00 Basophils % 0.4 % (0-1.3) 07/23/20 17:00 Absolute Neutrophils 12.3 K/uL (1.8-8.0) H 07/23/20 17:00 Segmented Neutrophils 79 % (40-80) 07/23/20 17:00 Band Neutrophils 7 % (0-1) H 07/23/20 17:00 Absolute Lymphocytes 1.0 K/uL (0.7-4.9) 07/23/20 17:00 Lymphocytes 10 % (15-42) L 07/23/20 17:00 Monocytes 3 % (0-10) 07/23/20 17:00 Absolute Monocytes 0.7 K/uL (0.1-1.3) 07/23/20 17:00 Absolute Eosinophils 0.0 K/uL (0-0.5) 07/23/20 17:00 Basophils 1 % (0-1) 07/23/20 17:00 Absolute Basophils 0.1 K/uL (0-0.5) 07/23/20 17:00 Platelet Estimate Adeq 07/23/20 17:00 Morphology Comment Not seen (NOT SEEN) 07/23/20 17:00 Sodium 138 mmol/L (136-145) 07/23/20 17:00 Potassium 3.9 mmol/L (3.5-5.1) 07/23/20 17:00 Chloride 104 mmol/L (98-107) 07/23/20 17:00 Carbon Dioxide 26 mmol/L (21-32) 07/23/20 17:00 BUN 18 mg/dL (7-18) 07/23/20 17:00 Creatinine 0.94 mg/dL (0.55-1.3) 07/23/20 17:00 Estimated GFR 62 mL/min (=/>90) L 07/23/20 17:00 Glucose 122 mg/dL (74-106) H 07/23/20 17:00 Lactic Acid 1.7 mmol/L (0.4-2.0) 07/23/20 18:37 Calcium 9.0 mg/dL (8.5-10.1) 07/23/20 17:00 Total Bilirubin 0.9 mg/dL (0.2-1.0) 07/23/20 17:00 Direct Bilirubin 0.2 mg/dL (0-0.2) 07/23/20 17:00 AST 11 U/L (15-37) L 07/23/20 17:00 ALT 37 U/L (12-78) 07/23/20 17:00 Alkaline Phosphatase 121 U/L (45-117) H 07/23/20 17:00 Serum Total Protein 7.4 g/dL (6.4-8.2) 07/23/20 17:00 Albumin 3.6 g/dL (3.4-5.0) 07/23/20 17:00 Globulin 3.8 g/dL (2.3-3.5) H 07/23/20 17:00 Albumin/Globulin Ratio 0.9 (1.1-1.8) L 07/23/20 17:00 Lipase 102 U/L (73-393) 07/23/20 17:00 Procalcitonin 0.19 ng/mL (<0.050) H 07/23/20 18:37 Urine pH 7.0 (5.0-7.0) 07/23/20 16:15 Ur Specific [place] 1.020 (1.005-1.030) 07/23/20 16:15 Glucose (UA)(Auto) Negative (Negative) 07/23/20 16:15 Urine Ketones Trace (Negative) H 07/23/20 16:15 Urine Blood 3+ (Negative) H 07/23/20 16:15 Urine Nitrite Negative (Negative) 07/23/20 16:15 Ur Leukocyte Esterase 3+ (Negative) H 07/23/20 16:15 Urine RBC 20-50 /HPF (NONE SEEN) H 07/23/20 16:16 Urine WBC 20-50 /HPF (<5) H 07/23/20 16:16 Ur Squamous Epith Cells 5-10 /HPF (NONE SEEN) H 07/23/20 16:16 Urine Bacteria >50 /HPF (<20) H 07/23/20 16:16 Urine Culture Reflexed Reflexed 07/23/20 16:16 Urine Total Protein 3+ (Negative) H 07/23/20 16:15 Ur Specific [place] (HCG) 1.020 (1.005-1.030) 07/23/20 16:25 Urine Test Neg (NEG) 07/23/20 16:25 Conclusions/Impression: Antibiotics: Levaquin start: 07/24 stop:-- Assessment: -urosepsis with left-sided pyelonephritis -hypertension -anemia Plan: -Initial blood cultures taken on 07/23-first bottle grew gram-negative rods- likely E coli. Second bottle grew cons- likely contamination. Repeat blood culture ordered on 07/25. Patient can be Dc home on oral Levaquin for any antibiotic duration of 2 weeks following a negative blood culture report. -urinary culture taken on 07/23 grew E coli. Covered by Levaquin. -medical management per primary team -continue to monitor BMP and CBC -continue to monitor signs of infection Plan of care discussed with Dr. Lewis Thank you for consultation
--- NOTE | 2020-07-26 14:26 | RAD REPORT ---
EXAM DESCRIPTION: US - Renal Ultrasound-Complete - 07/26/2020 1:47 pm CLINICAL HISTORY: Abdominal pain/pyelonephritis COMPARISON: July 23, 2020 cat scan FINDINGS: The right kidney measures 10 cm with a normal echotexture. The left kidney measures 10 cm with a normal echotexture. No abscess seen. Hydronephrosis is not seen. No gross abnormality of bladder IMPRESSION: Unremarkable renal ultrasound.
[2020-07-26] MEDS: Levofloxacin500mg IV 500 MG/100 ML BAG IV SCH (17:20)
--- NOTE | 2020-07-26 17:57 | P.PN ---
Subjective Date of Service: 07/26/20 Chief Complaint: Pyelonephritis Physical Examination - Vital Signs Temperature: 96.9 F Blood Pressure: 167/70 Pulse: 81 Respirations: 18 Pulse Ox (%): 95 Assessment & Plan Physician Review Additional Text: Physical Exam General: Alert, NAD HEENT: normal conjunctiva, sclera anicteric Respiratory: Clear to auscultation bilaterally, Normal air movement Cardiovascular: regular rate and rhythm, no murmur Abd: soft, mild suprapubic tenderness, nondistended MSk: NO CVA tendernss, no joint tenderness Integumentary: No rashes Problem List Acute left-sided pyelonephritis with mild hydronephrosis Hypertension -continue IV levaquin, f/u blood and urine cultures - e.coli +, blood positive with GNR -ID consulted, repeat blood culture on 07/25 -PRN pain medication, anti-emetics as well -dc'd IVF -leukocytosis improved -continue to f/u labs, monitor UOP / vitals VTE: lovenox Code: full Dispo: anticipate dc home in ~24-48hrs, sensitive e.coli, likely won't need IV antibiotics, but blood cultures still pending Time Spent Managing Pts Care (In Minutes): 35
[2020-07-26] MEDS: NEBIVOLOL HCL 5 MG TAB PO SCH (21:17)
[2020-07-27 04:10] LABS: Absolute Lymphocytes (CBC) 1.6 K/uL (0.7-4.9); Basophils % 0.8 % (0-1.3); MPV 9.5 fL (7.6-11.3)
[2020-07-27 04:24] LABS: C-Reactive Protein 79.9 mg/L (<3.00); Potassium 3.8 mmol/L (3.5-5.1)
[2020-07-27] MEDS: NEBIVOLOL HCL 5 MG TAB PO SCH (08:36)
[2020-07-27] MEDS: ENOXAPARIN 40 MG/0.4 ML SQ SCH (08:36)
[2020-07-27 08:38] VITALS: BP 149/91
[2020-07-27 09:26] VITALS: TEMP 97.6
[2020-07-27] MEDS ORDERED: POTASSIUM 25 MEQ EFFERV TAB PO ONE (09:35)
[2020-07-27 10:57] VITALS: O2SAT 96
--- NOTE | 2020-07-27 17:06 | P.DS ---
Admission Date: 07/23/20 Discharge Date: 07/27/20 Disposition: ROUTINE DISCHARGE Discharge Condition: GOOD Reason for Admission: Pyelonephritis Consultations: MARVIN - Dr. Lewis Procedures: CT Abd/Pelvis (07/23): Left-sided pyelonephritis without abscess or focal mass lesion. Mild left-sided hydronephrosis probably due to inflammatory debris in the ureter. No obstructing or nonobstructing calculi. Renal U/S (07/26): Right kidney measures 10 cm with a normal echotexture. The left kidney measures 10 cm with a normal echotexture. No abscess seen. Hydronephrosis is not seen. No gross abnormality of bladder IMPRESSION: Unremarkable renal ultrasound. Problem List Acute left-sided pyelonephritis with mild hydronephrosis Hypertension Brief History of Present Illness: 54-year-old female with history of hypertension, arthritis presents emergency department for dysuria, flank pain for the last 2 days. Patient evaluated in the emergency department, labs significant for white blood cell count 14.1, urine with greater than 50 bacteria on microscopic analysis CT abdomen pelvis with contrast demonstrates left-sided pyelonephritis without abscess or focal mass lesion, mild left-sided hydronephrosis probably due to inflammatory debris in the ureter without obstructing or nonobstructing calculi. Patient still significantly uncomfortable in the emergency department with some nausea, ED provider wishes to admit for further evaluation and management of pyelonephritis. Hospital Course: She was treated empirically with IV Levaquin. Urine and Blood grew e.coli. Repeat blood cultures were negative. She had improvement in her symptoms and was feeling much better. She was discharged with 2 weeks of PO levaquin. She is to follow up with her PCP in 3-5 days. Vital Signs/Physical Exam: Physical Exam General: Alert, NAD HEENT: normal conjunctiva, sclera anicteric Respiratory: Clear to auscultation bilaterally, Normal air movement Cardiovascular: regular rate and rhythm, no murmur Abd: soft, nontender, nondistended MSk: NO CVA tendernss, no joint tenderness Integumentary: No rashes Temp Pulse Resp BP Pulse Ox 97.6 F 74 18 149/91 H 96 07/27/20 08:00 07/27/20 08:36 07/27/20 08:00 07/27/20 08:36 07/27/20 08:00 Laboratory Data at Discharge: WBC 4.70 K/uL (4.3-10.9) 07/27/20 03:45 Hgb 10.8 g/dL (12.0-15.0) L 07/27/20 03:45 Hct 31.0 % (36.0-45.0) L 07/27/20 03:45 Plt Count 274 K/uL (152-406) D 07/27/20 03:45 Sodium 140 mmol/L (136-145) 07/27/20 03:45 Potassium 3.8 mmol/L (3.5-5.1) 07/27/20 03:45 BUN 10 mg/dL (7-18) 07/27/20 03:45 Creatinine 0.70 mg/dL (0.55-1.3) 07/27/20 03:45 Glucose 109 mg/dL (74-106) H 07/27/20 03:45 Magnesium 2.5 mg/dL (1.8-2.4) H 07/25/20 05:18 Total Bilirubin 0.5 mg/dL (0.2-1.0) 07/25/20 05:18 AST 9 U/L (15-37) L 07/25/20 05:18 ALT 25 U/L (12-78) 07/25/20 05:18 Alkaline Phosphatase 94 U/L (45-117) 07/25/20 05:18 Lipase 102 U/L (73-393) 07/23/20 17:00 Home Medications: Diclofenac Na [Voltaren D.r*] 75 mg PO BID 07/24/20 traMADol HCL [Ultram*] 50 mg PO TID 07/24/20 Nebivolol HCl [Bystolic] 10 mg PO DAILY 07/26/20 levoFLOXacin [Levaquin] 750 mg PO DAILY 12 Days #12 tab 07/27/20 New Medications: levoFLOXacin [Levaquin] 750 mg PO DAILY 12 Days #12 tab Physician Discharge Instructions: PROBLEM: Pyelonephritis GOAL: Clear understanding of disease process INSTRUCTIONS: Diet: Regular Activity: As tolerated If you have any questions regarding your stay call [phone] If your symptoms worsen call 911 or go to the ED. You were found to have Pyelonephritis (infection of your kidney). Your blood culture grew e.coli (same as in your urine), but on recheck it was cleared. You are discharged with 12 more days of antibiotics to complete 2 weeks. Follow up with your PCP in 3-5 days. Diet: Regular Activity: Ad za Followup: WILLIAM THOMAS [Primary Care Provider] - Time spent managing pt's care (in minutes): 35
[2020-07-27] MEDS ORDERED: NEBIVOLOL HCL 5 MG TAB PO SCH (20:40)
== END 2020-07-27 11:30 | disposition home or self-care (01) | DRG 690 ==
LOC: ER 15:07 → ERHOLD 19:17 → 2ND 21:30
PROVIDERS: ADMIT Hospitalist; ATTEND Hospitalist
DX: N10 Acute pyelonephritis (principal); Z68.42 Body mass index [BMI] 45.0-49.9, adult; E66.9 Obesity, unspecified; D72.829 Elevated white blood cell count, unspecified; D64.9 Anemia, unspecified; I10 Essential (primary) hypertension; N13.30 Unspecified hydronephrosis; B96.20 Unspecified Escherichia coli [E. coli] as the cause of diseases classified elsewhere; Z88.0 Allergy status to penicillin; Z88.1 Allergy status to other antibiotic agents; Z79.899 Other long term (current) drug therapy; Z98.51 Tubal ligation status; Z20.822 Contact with and (suspected) exposure to COVID-19
CPT/HCPCS: 36415; 74177; 76770; 80048; 80053; 80076; 81003; 81015; 81025; 83605; 83690; 83735; 84145; 85025; 86140; 87040; 87077; 87086; 87088; 87186; 87205; 96365; 96366; 96375; 99285; J1650; J2175; J2270; J2405; J7030; Q9967; U0003

== ENCOUNTER 2020-12-16 08:22 | Emergency (ER) | payer OTHER ==
[2020-12-16 08:56] LABS: Urine Blood Negative (Negative); Urine Glucose Negative (Negative); Urine Protein Trace (Negative); Urine Specific Gravity 1.015 (1.005-1.030); Urine pH 5.5 (5.0-7.0)
[2020-12-16 09:35] LABS: Potassium 4.1 mmol/L (3.5-5.1)
[2020-12-16 09:43] LABS: Calcium Oxalate Crystals- Ur FEW (NONE SEEN); Urine Amorphous Sediment 1+ /HPF (NONE SEEN); Urine Bacteria <20 /HPF (<20); Urine Mucus 1+ /HPF (NONE SEEN); Urine RBC <5 /HPF (NONE SEEN)
[2020-12-16 09:57] LABS: Absolute Lymphocytes (CBC) 5.4 K/uL (0.7-4.9); Basophils % 1.5 % (0-1.3); Hematocrit 37.5 % (36.0-45.0); Lymphocytes % 61.6 % (15.3-44.8); MPV 9.5 fL (7.6-11.3); RBC Red Blood Cell Count 4.02 M/uL (3.86-4.86)
--- NOTE | 2020-12-16 10:13 | RAD REPORT ---
EXAM DESCRIPTION: [place] Single View12/16/2020 9:15 am CLINICAL HISTORY: Cough COMPARISON: 2017 FINDINGS: The lungs appear clear of acute infiltrate. The heart is normal size IMPRESSION: No acute abnormalities displayed
--- NOTE | 2020-12-16 10:38 | RAD REPORT ---
EXAM DESCRIPTION: CT - Abdomen Pelvis W Contrast - 12/16/2020 10:03 am CLINICAL HISTORY: Abdominal pain COMPARISON: July 2020 TECHNIQUE: Computed axial tomography of the abdomen pelvis was obtained. 100 cc Isovue-300 was admin istered intravenously. Oral contrast was not requested which limits evaluation of bowel. All CT scans are performed using dose optimization technique as appropriate and may include automated exposure control or mA/KV adjustment according to patient size. FINDINGS: The liver, spleen, pancreas, adrenal and left kidney appear unremarkable. Mild low-density area right kidney extensive the periphery. There is no evidence of diverticulitis. Normal appendix Small umbilical hernia IMPRESSION: Mild right pyelonephritis
--- NOTE | 2020-12-16 10:53 | EDPHYS ---
Physician Documentation [facility] Name: Raven Mccullough Age: 55 yrs Sex: Female : 1965 Arrival Date: 12/16/2020 Time: 08:25 Bed 19 Private MD: ED Physician Adán Padilla HPI: 12/16 08:42 This 55 yrs old Female presents to ER via Ambulatory with complaints of rn Abdominal Pain, Back Pain. 08:42 The patient presents with pain that is acute, with no known mechanism of injury. The rn symptoms are located in the right mid back. Onset: The symptoms/episode began/occurred 2 day(s) ago. The pain radiates to the abdomen. Associated signs and symptoms: Pertinent positives: abdominal pain, Pertinent negatives: fever, hematuria, incontinence, tingling, urinary retention, vomiting, weakness. Modifying factors: The patient symptoms are alleviated by nothing, the patient symptoms are aggravated by nothing. Severity of symptoms: At their worst the symptoms were moderate, in the emergency department the symptoms are unchanged. The patient has experienced a previous episode. The patient has been recently seen by a physician:. Reports left flank pain that radiates to the left lower abdomen, no fever but feels chills and sweating. Reports similar to when had kidney infection in the past. Seen by PCP last week for upper respiratory infection, states Covid/flu/strep negative at that time. Denies any dysuria. Denies diarrhea. Reports took Zithromax and felt better in terms of the cough. Reports pain in left flank/left upper quadrant/left lower quadrant. Denies trauma. Historical: - Allergies: 08:33 PENICILLINS; hb 08:33 Sulfa (Sulfonamide Antibiotics); hb - PMHx: 08:33 Arthritis; Hypertension; hb - Immunization history:: Client reports receiving the 2nd dose of the Covid vaccine, Flu vaccine is up to date. - Social history:: Smoking status: Patient denies any tobacco usage or history of. - Family history:: not pertinent. - Hospitalizations: : No recent hospitalization is reported. ROS: 08:42 Constitutional: Negative for fever, positive for chills Eyes: Negative for injury, rn pain, redness, and discharge, ENT: Negative for injury, pain, and discharge, Neck: Negative for injury, pain, and swelling, Cardiovascular: Negative for chest pain, palpitations, and edema, Respiratory: Negative for shortness of breath, cough, wheezing, and pleuritic chest pain, Abdomen/GI: Positive for abdominal pain Back: Positive for left flank pain : Negative for injury, bleeding, discharge, and swelling, MS/Extremity: Negative for injury and deformity, Skin: Negative for injury, rash, and discoloration, Neuro: Negative for headache, numbness, tingling, and seizure. Exam: 08:42 Constitutional: This is a well developed, well nourished patient who is awake, alert, rn tachypneic Head/Face: Normocephalic, atraumatic. Eyes: Periorbital areas with no swelling, redness, or edema. ENT: No stridor Cardiovascular: Regular rate and rhythm. No pulse deficits. Respiratory: Mild tachypnea Abdomen/GI: Soft, non-tender Skin: Warm, dry MS/ Extremity: Pulses equal, no cyanosis. Neuro: Awake and alert, GCS 15 08:55 ECG was reviewed by the Attending Physician. rn Vital Signs: 08:29 BP 128 / 88; Pulse 88; Resp 24; Temp 97.8(TE); Pulse Ox 98% on R/A; Weight 131.54 kg; hb Height 5 ft. 6 in. (167.64 cm); Pain 6/10; 09:56 BP 137 / 79; Pulse 70; Resp 20; Pulse Ox 95% ; Pain 6/10; tc5 11:51 BP 146 / 68; Pulse 71; Resp 15; Pulse Ox 97% ; Pain 5/10; tc5 08:29 Body Mass Index 46.81 (131.54 kg, 167.64 cm) hb Ashley Coma Score: 09:14 Eye Response: spontaneous(4). Verbal Response: oriented(5). Motor Response: obeys tc5 commands(6). Total: 15. MDM: 08:31 Patient medically screened. rn 10:52 Differential diagnosis: Hydronephrosis Pyelonephritis Ureterolithiasis UTI. Data rn reviewed: vital signs, nurses notes, lab test result(s), radiologic studies, CT scan, and as a result, I will discharge patient. Data interpreted: laboratory monitor: rate is 70 beats/min, rhythm is normal sinus rhythm, regular, with no ectopy, Interpretation: normal rate, normal rhythm, Pulse oximetry: on room air is 97 %. Interpretation: normal. Counseling: I had a detailed discussion with the patient and/or guardian regarding: the historical points, exam findings, and any diagnostic results supporting the discharge/admit diagnosis, lab results, radiology results, the need for outpatient follow up, to return to the emergency department if symptoms worsen or persist or if there are any questions or concerns that arise at home. Response to treatment: the patient's symptoms have mildly improved after treatment, and as a result, I will discharge patient. Special discussion: I discussed with the patient/guardian in detail that at this point there is no indication for admission to the hospital. It is understood, however, that if the symptoms persist or worsen the patient needs to return immediately for re-evaluation. ED course: Patient with mild early pyelonephritis. Stable vital signs. Wishes to try and treat outside of the hospital. I agree the right now she can be treated outpatient. IV antibiotics given here and will give p.o. Allergic to penicillin so will DC with ciprofloxacin. Return precautions given and understood.. 12/16 08:41 Order name: CBC with Diff rn 12/16 08:41 Order name: Basic Metabolic Panel; Complete Time: 10:17 rn 12/16 08:41 Order name: Urine Culture rn 12/16 08:41 Order name: Urine Microscopic Only; Complete Time: 10:17 rn 12/16 08:41 Order name: Blood Culture Adult (2) rn 12/16 08:41 Order name: Procalcitonin rn 12/16 08:41 Order name: CT Abd/Pelvis - IV Contrast Only; Complete Time: 10:44 rn 12/16 08:41 Order name: XRAY Chest (1 view); Complete Time: 10:17 rn 12/16 08:56 Order name: Troponin (emerg Dept Use Only); Complete Time: 10:17 rn 12/16 08:56 Order name: Urine Dipstick-Ancillary; Complete Time: 09:34 EDMS 12/16 09:59 Order name: Manual Differential EDMS 12/16 08:41 Order name: IV Start; Complete Time: 09:10 rn 12/16 08:41 Order name: Urine Dipstick-Ancillary (obtain specimen); Complete Time: 08:56 rn 12/16 08:41 Order name: EKG; Complete Time: 08:42 rn 12/16 08:41 Order name: EKG - Nurse/Tech; Complete Time: 08:56 rn 12/16 09:38 Order name: Labs - recollect needed: recollect green top bd EC:55 Rate is 75 beats/min. Rhythm is regular. QRS [place] is Normal. AR interval is normal. QRS rn interval is normal. QT interval is normal. No Q waves. T waves are Inverted in leads V1, V2, V3. No ST changes noted. Clinical impression: NSR w/ Non-specific ST/T Changes. Interpreted by me. Reviewed by me. Administered Medications: 10:56 Drug: Cipro (ciprofloxacin) 400 mg Volume: 200 ml; Route: IVPB; Infused Over: 60 mins; tc5 Site: left antecubital; 11:54 Follow up: Response: No adverse reaction; IV Status: Completed infusion; IV Intake: tc5 200ml 11:25 Drug: Ketorolac 15 mg Route: IVP; Site: left antecubital; tc5 11:54 Follow up: Response: No adverse reaction; Pain is decreased tc5 Disposition Summary: 12/16/20 10:53 Discharge Ordered Location: Home rn Problem: new rn Symptoms: have improved rn Condition: Stable rn Diagnosis - Pyelonephritis acute rn Followup: rn - With: Private Physician - When: 2 - 3 days - Reason: Recheck today's complaints, Re-evaluation by your physician Discharge Instructions: - Discharge Summary Sheet rn - Pyelonephritis, Adult rn Forms: - Medication Reconciliation Form rn - Thank You Letter rn - Antibiotic yarn skeins examiner - Prescription Opioid Use rn Prescriptions: - Cipro 500 mg Oral Tablet - take 1 tablet by ORAL route every 12 hours for 10 days; 20 tablet; Refills: 0, rn Product Selection Permitted Signatures: Dispatcher [employer] Dorina Avalos Roman, MD MD rn Baxter, Heather RN Aretha Melton, RN RN tc5
--- NOTE | 2020-12-16 10:53 | ER ---
Nurse's Notes [facility] Name: Raven Mccullough Age: 55 yrs Sex: Female : 1965 Arrival Date: 12/16/2020 Time: 08:25 Bed 19 Private MD: Diagnosis: Pyelonephritis acute Presentation: 12/16 08:29 Chief complaint: Left flank pain that radiates to LLQ x 3 days. Denies urinary s/s. hb Completed Zithromax for URI 2 days ago, c/o lingering cough and SOB. Coronavirus screen: Client presents with at least one sign or symptom that may indicate coronavirus-19. Standard/surgical mask placed on the client. Ebola Screen: No symptoms or risks identified at this time. Risk Assessment: Do you want to hurt yourself or someone else? Patient reports no desire to harm self or others. Onset of symptoms was December 16, 2020. 08:29 Method Of Arrival: Ambulatory hb 08:29 Acuity: LUZ 3 hb Historical: - Allergies: 08:33 PENICILLINS; hb 08:33 Sulfa (Sulfonamide Antibiotics); hb - PMHx: 08:33 Arthritis; Hypertension; hb - Immunization history:: Client reports receiving the 2nd dose of the Covid vaccine, Flu vaccine is up to date. - Social history:: Smoking status: Patient denies any tobacco usage or history of. - Family history:: not pertinent. - Hospitalizations: : No recent hospitalization is reported. Screenin:14 Abuse screen: Denies threats or abuse. Denies injuries from another. Nutritional tc5 screening: No deficits noted. Tuberculosis screening: No symptoms or risk factors identified. Fall Risk None identified. Assessment: 09:13 Pain: Complains of pain in left upper quadrant and left lower quadrant. GI: Reports tc5 left abd pain and some SOB since Wednesday. Vital Signs: 08:29 BP 128 / 88; Pulse 88; Resp 24; Temp 97.8(TE); Pulse Ox 98% on R/A; Weight 131.54 kg; hb Height 5 ft. 6 in. (167.64 cm); Pain 6/10; 09:56 BP 137 / 79; Pulse 70; Resp 20; Pulse Ox 95% ; Pain 6/10; tc5 11:51 BP 146 / 68; Pulse 71; Resp 15; Pulse Ox 97% ; Pain 5/10; tc5 08:29 Body Mass Index 46.81 (131.54 kg, 167.64 cm) hb Ashley Coma Score: 09:14 Eye Response: spontaneous(4). Verbal Response: oriented(5). Motor Response: obeys tc5 commands(6). Total: 15. ED Course: 08:25 Patient arrived in ED. mr 08:31 Adán Padilla MD is Attending Physician. rn 08:33 Triage completed. hb 08:33 Arm band placed on. hb 08:34 Aretha Alex, RN is Primary Nurse. tc5 09:14 Inserted saline lock: 20 gauge in right forearm, using aseptic technique. ,using tc5 aseptic technique. placed by Anatoly GARNER. Blood collected. 09:15 XRAY Chest (1 view) In Process Unspecified. EDMS 09:54 IV discontinued, intact, bleeding controlled, pt reports pain at site of insertion, tc5 redness to the area around. 09:55 Inserted saline lock: 20 gauge in left antecubital area, using aseptic technique. Blood tc5 collected. 10:03 CT Abd/Pelvis - IV Contrast Only In Process Unspecified. EDMS 12:01 IV discontinued, intact, bleeding controlled, No redness/swelling at site. tc5 Administered Medications: 10:56 Drug: Cipro (ciprofloxacin) 400 mg Volume: 200 ml; Route: IVPB; Infused Over: 60 mins; tc5 Site: left antecubital; 11:54 Follow up: Response: No adverse reaction; IV Status: Completed infusion; IV Intake: tc5 200ml 11:25 Drug: Ketorolac 15 mg Route: IVP; Site: left antecubital; tc5 11:54 Follow up: Response: No adverse reaction; Pain is decreased tc5 Intake: 11:54 IV: 200ml; Total: 200ml. tc5 Outcome: 10:53 Discharge ordered by . rn 12:02 Patient left the ED. tc5 Signatures: Dispatcher [employer] EDCA Kathy Murphy Adán Padilla MD MD rn Baxter, Heather, RN RN hb Cassaboom, Theresa, RN RN tc5
[2020-12-16 11:03] LABS: Blood Morphology Comment NOT SEEN (NOT SEEN); Platelet Estimate ADEQ
[2020-12-16] MEDS ORDERED: CIPROFLOXACIN 400mg IV 400 MG/200 ML BAG IV ONE (11:17)
[2020-12-16] MEDS ORDERED: KETOROLAC 30 MG/ML INJ ONE (11:46)
[2020-12-16 12:07] VITALS: TEMP 97.8
[2020-12-16 12:10] VITALS: BP 146/68; O2SAT 97
--- NOTE | 2020-12-17 18:12 | EKG ---
Test Date: 2020-12-16 Test Time: 08:54:57 Poker Dealer: SERA MEASUREMENT RESULTS: Intervals: Rate: 75 NH: 126 QRSD: 86 QT: 384 QTc: 428 [place]: P: 23 NH: 126 QRS: -12 T: 33 INTERPRETIVE STATEMENTS: Normal sinus rhythm Possible Anterior infarct, age undetermined Abnormal ECG No previous ECG available for comparison Electronically Signed On 12-17-20 18:06:15 CDT by Demetrius Marquez
== END 2020-12-16 12:02 | disposition home or self-care (01) ==
LOC: ER 08:22
DX: N10 Acute pyelonephritis (principal); I10 Essential (primary) hypertension; Z88.0 Allergy status to penicillin; Z88.2 Allergy status to sulfonamides
CPT/HCPCS: 96365; 93005; 87040; 87088; 85025; 87086; 80048; 36415; 84484; 84145; 74177; 71045; 96375; 99284; Q9967; J0744; 81003; 81015

== ENCOUNTER 2022-07-22 23:47 | Observation (INO) | payer OTHER ==
--- OUTSIDE RECORDS SUMMARY | 2022-07-22 23:50 | XMS REPORT | Continuity of Care Document ---
:1965 Author Organization [facility] t Address [address] [facility] [address] [place] [address] Care Team Providers Name Role Phone TAMEKA CHAIREZ Attending Clinician Unavailable Rashaad Attending Clinician Unavailable Ashli Attending Clinician Unavailable Kaila Attending Clinician Unavailable YESENIA RETANA Attending Clinician Unavailable Rashaad Admitting Clinician Unavailable Myles_F Admitting Clinician Unavailable Kaila Admitting Clinician Unavailable Payers Payer Name Policy Type Policy Number Effective Date Expiration Date [facility] [id number] 2012 00:00:00 [facility] [id number] 2021 00:00:00 Problems Condition Condition Condition Status Onset Resolution Last Treating Co mments Source Name Details Category Date Date Treatment Clinician Date Flank pain Flank Pain Problem Active [facility] 5-06 da 00:00: Medical 00 Group Acute Acute Problem Active [facility] urinary Urinary 5-03 da tract Tract 00:00: Medical infection Infection 00 Grou p Dysuria Dysuria Problem Active [facility] 6-20 da 00:00: Medical 00 Group Acute Acute Problem Active 2020-03 [facility] upper Upper 2-28 da respirator Respirator 00:00: Me dical y y 00 Group infection Infection Suspected Suspected Problem Active 2020-03 [facility] COVID-19 COVID-19 2-28 da 00:00: Medical 00 Group Obesity Obesity Problem Active [facility] [...] substanc Medical e Group SULFA Allergy Active Itching [facility] (SULFONA to da MIDE substan Medical ANTIBIOT e Group ICS) Social History Smoking Status Start Date Stop Date Source Never Smoker [facility] Medications Ordered Filled Start Stop Current Ordering Indication Dosage Frequency Signature Comments Components Source Medication Medication Date Date Medication? Clinician (SIG) Name Name ceftriaxone ceftriaxone No ceftriaxon [facility] 1 gram 1 gram 5-03 e 1 gram da solution solution 15:01: solution M edical for for 00 for Group injectionTa injectionTa injectionT ke 1 g by ke 1 g by echo 1 g by injection injection injection route. route. route. lidocaine lidocaine No lidocaine [facility] (PF) 10 (PF) 10 5-03 (PF) 10 da mg/mL (1 %) mg/mL (1 %) 15:01: mg/mL (1 Medical injection injection 00 %) Group solutionTak solutionTak injection e 2.2 mL by e 2.2 mL by solutionTa injection injection ke 2.2 mL route. route. by injection route. neomycin-po neomycin-po No 4drop(s TID neomycin-p [facility] lymyxin-hyd lymyxin-hyd ) olymyxin-h da rocort 3.5 rocort 3.5 ydrocort Medical mg/mL-10,00 mg/mL-10,00 3.5 G roup 0 unit/mL-1 0 unit/mL-1 mg/mL-10,0 % ear % ear 00 solution solution unit/mL-1 Instill 4 Instill 4 % ear drops 3 drops 3 solution times a day times a day Instill 4 by otic by otic drops 3 route for route for times a 10 days. 10 days. day by otic route for 10 days. tramadol 50 tramadol 50 No tramadol [facility] mg tablet mg tablet 50 mg da TAKE 1 TAKE 1 tablet Medical TABLET BY TABLET BY TAKE 1 [facility] up MOUTH THREE MOUTH THREE TABLET BY TIMES A DAY TIMES A DAY MOUTH NEEDED NEEDED THREE TIMES A DAY NEEDED diclofenac diclofenac No diclofenac [facility] sodium 75 sodium 75 sodium 75 da mg mg mg Medical tablet,bertha tablet,bertha tablet,del Group yed release yed release ayed release nebivolol nebivolol No nebivolol [facility] 10 mg 10 mg 10 mg da tablet TAKE tablet TAKE tablet Medical 1 TABLET BY 1 TABLET BY TAKE 1 Group MOUTH EVERY MOUTH EVERY TABLET BY DAY DAY MOUTH EVERY DAY neomycin-po neomycin-po No neomycin-p [facility] lymyxin-hyd lymyxin-hyd olymyxin-h da rocort 3.5 rocort 3.5 ydrocort Medical mg/mL-10,00 mg/mL-10,00 3.5 G roup 0 unit/mL-1 0 unit/mL-1 mg/mL-10,0 % ear % ear 00 solution solution unit/mL-1 Instill 4 Instill 4 % ear drops 3 drops 3 solution times a day times a day Instill 4 by otic by otic drops 3 route for route for times a 10 days. 10 days. day by otic route for 10 days. phentermine phentermine No phentermin [facility] 37.5 mg 37.5 mg e 37.5 mg da tablet TAKE tablet TAKE tablet Medical 1 TABLET BY 1 TABLET BY TAKE 1 Group MOUTH EVERY MOUTH EVERY TABLET BY DAY BEFORE DAY BEFORE MOUTH A MEAL A MEAL EVERY DAY BEFORE A MEAL tramadol 50 tramadol 50 No tramadol [facility] mg tablet mg tablet 50 mg da TAKE 1 TAKE 1 tablet Medical TABLET BY TABLET BY TAKE 1 Evans up MOUTH THREE MOUTH THREE TABLET BY TIMES A DAY TIMES A DAY MOUTH NEEDED NEEDED THREE TIMES A DAY NEEDED diclofenac diclofenac No diclofenac [facility] 1 % [...] DAY A DAY MOUTH TWICE A DAY nebivolol nebivolol No nebivolol [facility] 10 mg 10 mg 10 mg da tablet TAKE tablet TAKE tablet Medical 1 TABLET BY 1 TABLET BY TAKE 1 Group MOUTH EVERY MOUTH EVERY TABLET BY DAY DAY MOUTH EVERY DAY neomycin-po neomycin-po No neomycin-p [facility] lymyxin-hyd lymyxin-hyd olymyxin-h da rocort 3.5 rocort 3.5 ydrocort Medical mg/mL-10,00 mg/mL-10,00 3.5 G roup 0 unit/mL-1 0 unit/mL-1 mg/mL-10,0 % ear % ear 00 solution solution unit/mL-1 Instill 4 Instill 4 % ear drops 3 drops 3 solution times a day times a day Instill 4 by otic by otic drops 3 route for route for times a 10 days. 10 days. day by otic route for 10 days. phentermine phentermine No phentermin [facility] 37.5 mg 37.5 mg e 37.5 mg da tablet TAKE tablet TAKE tablet Medical 1 TABLET BY 1 TABLET BY TAKE 1 Group MOUTH EVERY MOUTH EVERY TABLET BY DAY BEFORE DAY BEFORE MOUTH A MEAL A MEAL EVERY DAY BEFORE A MEAL tramadol 50 tramadol 50 No tramadol [facility] mg tablet mg tablet 50 mg da TAKE 1 TAKE 1 tablet Medical TABLET BY TABLET BY TAKE 1 Evans up MOUTH THREE MOUTH THREE TABLET BY TIMES A DAY TIMES A DAY MOUTH NEEDED NEEDED THREE TIMES A DAY NEEDED diclofenac diclofenac No diclofenac [facility] 1 % topical 1 % topical 1 % d a gel APPLY 2 gel APPLY 2 topical Medical G TWICE A G TWICE A gel APPLY Group DAY BY DAY BY 2 G TWICE TOPICAL TOPICAL A DAY BY ROUTE ROUTE TOPICAL DIRECTED DIRECTED ROUTE DIRECTED diclofenac diclofenac No diclofenac [facility] sodium 75 sodium 75 sodium 75 da mg mg mg Medical tablet,bertha tablet,bertha tablet,del Group yed release yed release ayed TAKE 1 TAKE 1 release TABLET BY TABLET BY TAKE 1 MOUTH TWICE MOUTH TWICE TABLET BY A DAY A DAY MOUTH TWICE A DAY nebivolol nebivolol No nebivolol [facility] 10 mg 10 mg 10 mg da tablet TAKE tablet TAKE tablet Medical 1 TABLET BY 1 TABLET BY TAKE 1 Group MOUTH EVERY MOUTH EVERY TABLET BY DAY DAY MOUTH EVERY DAY phentermine phentermine No phentermin [facility] 37.5 mg 37.5 mg e 37.5 mg da tablet TAKE tablet TAKE tablet Medical 1 TABLET BY 1 TABLET BY TAKE 1 Group MOUTH EVERY MOUTH EVERY TABLET BY DAY BEFORE DAY BEFORE MOUTH A MEAL A MEAL EVERY DAY BEFORE A MEAL tramadol 50 tramadol 50 No tramadol [facility] mg tablet mg tablet 50 mg da TAKE 1 TAKE 1 tablet Medical TABLET BY TABLET BY TAKE 1 Evans up MOUTH THREE MOUTH THREE TABLET BY TIMES A DAY TIMES A DAY MOUTH NEEDED NEEDED THREE TIMES A DAY NEEDED diclofenac diclofenac No diclofenac [facility] 1 % topical 1 % topical 1 % d a gel APPLY 2 gel APPLY 2 topical Medical G TWICE A G TWICE A gel APPLY Group DAY BY DAY BY 2 G TWICE TOPICAL TOPICAL A DAY BY ROUTE ROUTE TOPICAL DIRECTED DIRECTED ROUTE DIRECTED diclofenac diclofenac No diclofenac [facility] sodium 75 sodium 75 sodium 75 da mg mg mg Medical tablet,bertha tablet,bertha tablet,del Group yed release yed release ayed TAKE 1 TAKE 1 release TABLET BY TABLET BY TAKE 1 MOUTH TWICE MOUTH TWICE TABLET BY A DAY A DAY MOUTH TWICE A DAY nebivolol nebivolol No nebivolol [facility] 10 mg 10 mg 10 mg da tablet TAKE tablet TAKE tablet Medical 1 TABLET BY 1 TABLET BY TAKE 1 Group MOUTH EVERY MOUTH EVERY TABLET BY DAY DAY MOUTH EVERY DAY phentermine phentermine No phentermin [facility] 37.5 mg 37.5 mg e 37.5 mg da tablet TAKE tablet TAKE tablet Medical 1 TABLET BY 1 TABLET BY TAKE 1 Group MOUTH EVERY MOUTH EVERY TABLET BY DAY BEFORE DAY BEFORE MOUTH A MEAL A MEAL EVERY DAY BEFORE A MEAL tramadol 50 tramadol 50 No tramadol [facility] mg tablet mg tablet 50 mg da TAKE 1 TAKE 1 tablet Medical TABLET BY TABLET BY TAKE 1 Evans up MOUTH THREE MOUTH THREE TABLET BY TIMES A DAY TIMES A DAY MOUTH NEEDED NEEDED THREE TIMES A DAY NEEDED ceftriaxone ceftriaxone No 1g ceftriaxon [facility] 1 gram 1 gram e 1 gram da solution solution solution Med ical for for for Group injection injection injection Take 1 g by Take 1 g by Take 1 g injection injection by route. route. injection route. ciprofloxac ciprofloxac No ciprofloxa [facility] in 500 mg in 500 mg saul 500 mg da tablet TAKE tablet TAKE tablet Medical 1 TABLET BY 1 TABLET BY TAKE 1 Group MOUTH EVERY MOUTH EVERY TABLET BY 12 HOURS 12 HOURS MOUTH EVERY 12 HOURS diclofenac diclofenac No diclofenac [facility] 1 % topical 1 % topical 1 % d a gel APPLY 2 gel APPLY 2 topical Medical G TWICE A G TWICE A gel APPLY Group DAY BY DAY BY 2 G TWICE TOPICAL TOPICAL A DAY BY ROUTE ROUTE TOPICAL DIRECTED DIRECTED ROUTE DIRECTED diclofenac diclofenac No diclofenac [facility] sodium 75 sodium 75 sodium 75 da mg mg mg Medical tablet,bertha tablet,bertha tablet,del Group yed release yed release ayed TAKE 1 TAKE 1 release TABLET BY TABLET BY TAKE 1 MOUTH TWICE MOUTH TWICE TABLET BY A DAY A DAY MOUTH TWICE A DAY lidocaine lidocaine No 2.2mL lidocaine [facility] (PF) 10 (PF) 10 (PF) 10 da mg/mL (1 %) mg/mL (1 %) mg/mL (1 Medical injection injection %) Group solution solution injection Take 2.2 mL Take 2.2 mL solution by by Take 2.2 injection injection mL by route. route. injection route. nebivolol nebivolol No nebivolol [facility] 10 mg 10 mg 10 mg da tablet TAKE tablet TAKE tablet Medical 1 TABLET BY 1 TABLET BY TAKE 1 Group MOUTH EVERY MOUTH EVERY TABLET BY DAY DAY MOUTH EVERY DAY phentermine phentermine No phentermin [facility] 37.5 mg 37.5 mg e 37.5 mg da tablet TAKE tablet TAKE tablet Medical 1 TABLET BY 1 TABLET BY TAKE 1 Group MOUTH EVERY MOUTH EVERY TABLET BY DAY BEFORE DAY BEFORE MOUTH A MEAL A MEAL EVERY DAY BEFORE A MEAL Probiotic 1 Probiotic 1 No Probiotic [facility] cap daily cap daily 1 cap da daily Medical Group tramadol 50 tramadol 50 No tramadol [facility] mg tablet mg tablet 50 mg da TAKE 1 TAKE 1 tablet Medical TABLET BY TABLET BY TAKE 1 Evans up MOUTH THREE MOUTH THREE TABLET BY TIMES A DAY TIMES A DAY MOUTH NEEDED NEEDED THREE TIMES A DAY NEEDED Immunizations Ordered Immunization Filled Immunization Date Status Commen Source Name Name influenza, influenza, 2020-11-20 Completed [facility] injectable, injectable, 00:00:00 Medical Grou p quadrivalent quadrivalent influenza, influenza, 2020-11-20 Completed [facility] injectable, injectable, 00:00:00 Medical Grou p quadrivalent quadrivalent influenza, influenza, 2020-11-20 Completed [facility] injectable, injectable, 00:00:00 Medical Grou p quadrivalent quadrivalent influenza, influenza, 2020-11-20 Completed [facility] injectable, injectable, 00:00:00 Medical Grou p quadrivalent quadrivalent influenza, influenza, 2020-11-20 Completed [facility] injectable, injectable, 00:00:00 Medical Grou p quadrivalent quadrivalent influenza, influenza, 2020-11-20 Completed [facility] injectable, injectable, 00:00:00 Medical Grou p quadrivalent quadrivalent COVID-19, mRNA, COVID-19, mRNA, 2020-08-08 Completed [facility] LNP-S, PF, 30 LNP-S, PF, 30 00:00:00 Medical Group mcg/0.3 mL dose mcg/0.3 mL dose (Pfizer-BioNTech) ([employer]-BioNT[employer]) COVID-19, mRNA, COVID-19, mRNA, 2020-08-08 Completed [facility] LNP-S, PF, 30 LNP-S, PF, 30 00:00:00 Medical Group mcg/0.3 mL dose mcg/0.3 mL dose (Pfizer-BioNTech) (Pfizer-BioNTech) COVID-19, mRNA, COVID-19, mRNA, 2020-08-08 Completed [facility] LNP-S, PF, 30 LNP-S, PF, 30 00:00:00 Medical Group mcg/0.3 mL dose mcg/0.3 mL dose (Pfizer-BioNTech) (Pfizer-BioNTech) COVID-19, mRNA, COVID-19, mRNA, 2020-08-08 Completed [facility] LNP-S, PF, 30 LNP-S, PF, 30 00:00:00 Medical Group mcg/0.3 mL dose mcg/0.3 mL dose (Pfizer-BioNTech) (Pfizer-BioNTech) COVID-19, mRNA, COVID-19, mRNA, 2020-08-08 Completed [facility] LNP-S, PF, 30 LNP-S, PF, 30 00:00:00 Medical Group mcg/0.3 mL dose mcg/0.3 mL dose (Pfizer-BioNTech) (Pfizer-BioNTech) COVID-19, mRNA, COVID-19, mRNA, 2020-08-08 Completed [facility] LNP-S, PF, 30 LNP-S, PF, 30 00:00:00 Medical Group mcg/0.3 mL dose mcg/0.3 mL dose (Pfizer-BioNTech) ([employer]) COVID-19, mRNA, COVID-19, mRNA, 2020-07-16 Completed [facility] LNP-S, PF, 30 LNP-S, PF, 30 00:00:00 Medical Group mcg/0.3 mL dose mcg/0.3 mL dose (Pfizer-BioNTech) (Pfizer-BioNTech) COVID-19, mRNA, COVID-19, mRNA, 2020-07-16 Completed [facility] LNP-S, PF, 30 LNP-S, PF, 30 00:00:00 Medical Group mcg/0.3 mL dose mcg/0.3 mL dose (Pfizer-BioNTech) (Pfizer-BioNTech) COVID-19, mRNA, COVID-19, mRNA, 2020-07-16 Completed [facility] LNP-S, PF, 30 LNP-S, PF, 30 00:00:00 Medical Group mcg/0.3 mL dose mcg/0.3 mL dose (Pfizer-BioNTech) (Pfizer-BioNTech) COVID-19, mRNA, COVID-19, mRNA, 2020-07-16 Completed [facility] LNP-S, PF, 30 LNP-S, PF, 30 00:00:00 Medical Group mcg/0.3 mL dose mcg/0.3 mL dose (Pfizer-BioNTech) (Pfizer-BioNTech) COVID-19, mRNA, COVID-19, mRNA, 2020-07-16 Completed [facility] LNP-S, PF, 30 LNP-S, PF, 30 00:00:00 Medical Group mcg/0.3 mL dose mcg/0.3 mL dose (Pfizer-BioNTech) (Pfizer-BioNTech) COVID-19, mRNA, COVID-19, mRNA, 2020-07-16 Completed [facility] LNP-S, PF, 30 LNP-S, PF, 30 00:00:00 Medical Group mcg/0.3 mL dose mcg/0.3 mL dose (Pfizer-BioNTech) (Pfizer-BioNTech) Tdap Tdap 2018-12-28 Completed [facility] 09:41:00 Medical Group Tdap Tdap 2018-12-28 Completed [facility] 09:41:00 Medical Group Tdap Tdap 2018-12-28 Completed [facility] 09:41:00 Medical Group Tdap Tdap 2018-12-28 Completed [facility] 09:41:00 Medical Group Tdap Tdap 2018-12-28 Completed [facility] 09:41:00 Medical Group Tdap Tdap 2018-12-28 Completed [facility] 09:41:00 Medical Group Tdap Tdap 2018-12-26 Completed [facility] 12:11:12 Medical Group Tdap Tdap 2018-12-26 Completed [facility] 12:11:12 Medical Group Tdap Tdap 2018-12-26 Completed [facility] 12:11:12 Medical Group Tdap Tdap 2018-12-26 Completed [facility] 12:11:12 Medical Group Tdap Tdap 2018-12-26 Completed [facility] 12:11:12 Medical Group Tdap Tdap 2018-12-26 Completed [facility] 12:11:12 Medical Group Vital Signs Vital Name Observation Time Observation Value Comments Source Height 2022-07-15 00:00:00 66 [in_i] [facility] BMI (Body Mass 2022-07-15 00:00:00 46.3 kg/m2 [facility] Body Weight 2022-07-15 00:00:00 4592 [oz_av] [facility] Height 2022-06-04 00:00:00 66 [in_i] [facility] BMI (Body Mass 2022-06-04 00:00:00 45.2 kg/m2 [facility] Body Weight 2022-06-04 00:00:00 4480 [oz_av] [facility] Height 2022-04-13 00:00:00 66 [in_i] [facility] BMI (Body Mass 2022-04-13 00:00:00 45.2 kg/m2 [facility] Body Weight 2022-04-13 00:00:00 4480 [oz_av] [facility] Height 2022-02-17 00:00:00 66 [in_i] [facility] BMI (Body Mass 2022-02-17 00:00:00 45.8 kg/m2 [facility] Body Weight 2022-02-17 00:00:00 4544 [oz_av] [facility] Height 2021-12-18 00:00:00 66 [in_i] [facility] BMI (Body Mass 2021-12-18 00:00:00 45.8 kg/m2 [facility] Body Weight 2021-12-18 00:00:00 4544 [oz_av] [facility] Height 2021-11-06 00:00:00 66 [in_i] [facility] BMI (Body Mass 2021-11-06 00:00:00 46.3 kg/m2 [facility] Body Weight 2021-11-06 00:00:00 4592 [oz_av] [facility] Height 2021-10-22 00:00:00 66 [in_i] [facility] BMI (Body Mass 2021-10-22 00:00:00 46.3 kg/m2 [facility] Body Weight 2021-10-22 00:00:00 4592 [oz_av] [facility] Height 2021-09-01 00:00:00 66 [in_i] [facility] BMI (Body Mass 2021-09-01 00:00:00 46.6 kg/m2 [facility] Body Weight 2021-09-01 00:00:00 4624 [oz_av] [facility] Height 2021-08-25 00:00:00 66 [in_i] [facility] BMI (Body Mass 2021-08-25 00:00:00 47 kg/m2 [facility] Body Weight 2021-08-25 00:00:00 4656 [oz_av] [facility] Height 2021-06-23 00:00:00 66 [in_i] [facility] BMI (Body Mass 2021-06-23 00:00:00 46.8 kg/m2 [facility] Body Weight 2021-06-23 00:00:00 4640 [oz_av] [facility] Height 2021-06-12 00:00:00 66 [in_i] [facility] BMI (Body Mass 2021-06-12 00:00:00 46.8 kg/m2 [facility] Body Weight 2021-06-12 00:00:00 4640 [oz_av] [facility] Height 2021-04-30 00:00:00 66 [in_i] [facility] BMI (Body Mass 2021-04-30 00:00:00 47.8 kg/m2 [facility] Body Weight 2021-04-30 00:00:00 4736 [oz_av] [facility] Height 2021-03-24 00:00:00 66 [in_i] [facility] BMI (Body Mass 2021-03-24 00:00:00 47.3 kg/m2 [facility] Body Weight 2021-03-24 00:00:00 4688 [oz_av] [facility] Height 2021-03-11 00:00:00 66 [in_i] [facility] BMI (Body Mass 2021-03-11 00:00:00 46.8 kg/m2 [facility] Body Weight 2021-03-11 00:00:00 4640 [oz_av] [facility] Height 2020-12-24 00:00:00 66 [in_i] [facility] BMI (Body Mass 2020-12-24 00:00:00 47.5 kg/m2 [facility] Body Weight 2020-12-24 00:00:00 4704 [oz_av] [facility] Height 2020-12-10 00:00:00 66 [in_i] [facility] BMI (Body Mass 2020-12-10 00:00:00 45.7 kg/m2 [facility] Body Weight 2020-12-10 00:00:00 4528 [oz_av] [facility] Height 2020-10-09 00:00:00 66 [in_i] [facility] BMI (Body Mass 2020-10-09 00:00:00 45.7 kg/m2 [facility] Body Weight 2020-10-09 00:00:00 4528 [oz_av] [facility] Height 2020-08-15 00:00:00 66 [in_i] [facility] BMI (Body Mass 2020-08-15 00:00:00 47.6 kg/m2 [facility] Body Weight 2020-08-15 00:00:00 4720 [oz_av] [facility] Height 2020-05-28 00:00:00 66 [in_i] [facility] BMI (Body Mass 2020-05-28 00:00:00 46.3 kg/m2 [facility] Body Weight 2020-05-28 00:00:00 4592 [oz_av] [facility] Height 2020-04-25 00:00:00 66 [in_i] [facility] BMI (Body Mass 2020-04-25 00:00:00 45.5 kg/m2 [facility] Body Weight 2020-04-25 00:00:00 4512 [oz_av] [facility] Height 2020-02-27 00:00:00 66 [in_i] [facility] BMI (Body Mass 2020-02-27 00:00:00 43.9 kg/m2 [facility] Body Weight 2020-02-27 00:00:00 4352 [oz_av] [facility] Height 2020-02-07 00:00:00 66 [in_i] [facility] BMI (Body Mass 2020-02-07 00:00:00 43.9 kg/m2 [facility] Body Weight 2020-02-07 00:00:00 4352 [oz_av] [facility] Height 2019-12-28 00:00:00 66 [in_i] [facility] BMI (Body Mass 2019-12-28 00:00:00 45.2 kg/m2 [facility] Body Weight 2019-12-28 00:00:00 4480 [oz_av] [facility] Height 2019-11-30 00:00:00 66 [in_i] [facility] BMI (Body Mass 2019-11-30 00:00:00 45.2 kg/m2 [facility] Body Weight 2019-11-30 00:00:00 4480 [oz_av] [facility] Height 2019-11-02 00:00:00 66 [in_i] [facility] BMI (Body Mass 2019-11-02 00:00:00 45.7 kg/m2 [facility] Body Weight 2019-11-02 00:00:00 4528 [oz_av] [facility] Height 2019-09-28 00:00:00 66 [in_i] [facility] BMI (Body Mass 2019-09-28 00:00:00 45.8 kg/m2 [facility] Body Weight 2019-09-28 00:00:00 4544 [oz_av] [facility] Height 2019-09-19 00:00:00 66 [in_i] [facility] BP Diastolic 2018-12-26 00:00:00 80 mm[Hg] [facility] Height 2018-12-26 00:00:00 66 [in_i] [facility] BMI (Body Mass 2018-12-26 00:00:00 45.8 kg/m2 [facility] BP Systolic 2018-12-26 00:00:00 140 mm[Hg] [facility] Body Weight 2018-12-26 00:00:00 4544 [oz_av] [facility] BP Diastolic 2018-11-09 00:00:00 80 mm[Hg] [facility] Height 2018-11-09 00:00:00 66 [in_i] [facility] BMI (Body Mass 2018-11-09 00:00:00 45.7 kg/m2 [facility] BP Systolic 2018-11-09 00:00:00 130 mm[Hg] [facility] Body Weight 2018-11-09 00:00:00 4528 [oz_av] [facility] BP Diastolic 2018-08-01 00:00:00 90 mm[Hg] [facility] Height 2018-08-01 00:00:00 66 [in_i] [facility] BMI (Body Mass 2018-08-01 00:00:00 43.3 kg/m2 [facility]) [facility] BP Systolic 2018-08-01 00:00:00 149 mm[Hg] [facility] Body Weight 2018-08-01 00:00:00 4295 [oz_av] [facility] BP Diastolic 2018-07-04 00:00:00 86 mm[Hg] [facility] Height 2018-07-04 00:00:00 66 [in_i] [facility] BMI (Body Mass 2018-07-04 00:00:00 44.5 kg/m2 [facility] BP Systolic 2018-07-04 00:00:00 134 mm[Hg] [facility] Body Weight 2018-07-04 00:00:00 4416 [oz_av] [facility] BP Diastolic 2018-06-01 00:00:00 88 mm[Hg] [facility] Height 2018-06-01 00:00:00 66 [in_i] [facility] BMI (Body Mass 2018-06-01 00:00:00 44.2 kg/m2 [facility] BP Systolic 2018-06-01 00:00:00 146 mm[Hg] [facility] Body Weight 2018-06-01 00:00:00 4385 [oz_av] [facility] BP Diastolic 2018-04-11 00:00:00 84 mm[Hg] [facility] Height 2018-04-11 00:00:00 66 [in_i] [facility] BMI (Body Mass 2018-04-11 00:00:00 44.7 kg/m2 [facility]) [facility] BP Systolic 2018-04-11 00:00:00 136 mm[Hg] [facility] Body Weight 2018-04-11 00:00:00 4432 [oz_av] [facility] Procedures Procedure Date / Time Performing Clinician Source Performed Knee Surgery 2011-03-15 00:00:00 [facility] Drainage of Skin Abscess [facility] Plan of Care Planned Activity Planned Date Details Comments Source Diagnostic Test 2022-07-15 culture, urine + [facility] Pending 00:00:00 sensitivity [code = Group culture, urine + sensitivity] Diagnostic Test 2022-07-15 CMP, serum or plasma [facility] Pending 00:00:00 [code = CMP, serum Group or plasma] Diagnostic Test 2022-07-15 CBC w/ auto diff [facility] Pending 00:00:00 [code = CBC w/ auto Group diff] Instructions [facility] Encounters Start End Encounter Admission Attending Care Care Encounter Source Date/Time Date/Time Type Type Clinicians Facility Department ID 2021-05-08 Outpatient [facility] [id number] Common 14:29:04 [facility] 2022-07-20 2022-07-20 Outpatient NAA CHAIREZ [facility] [id number] [facility] 11:35:00 11:35:00 TAMEKA [id number] [facility] 2022-07-15 2022-07-15 Outpatient LATASHA CHAIREZ [facility] [id number] [place] 16:10:00 16:10:00 TAMEKA [id number] [facility] 2022-07-15 2022-07-15 Outpatient OracioasterHoward [facility] 00[facility]00:00 00:00:00 [id number] 2022-07-15 2022-07-15 Tameka [facility] [place] - [id number] [facility] 00:00:00 00:00:00 [facility] [employer]: [address] [facility], [address], [place] [address] , Ph. 2022-06-05 2022-06-05 Outpatient Myles_F [facility] 2022 [place] 00:00:00 00:00:00 [id number] 2022-06-04 2022-06-04 Outpatient Zuniga_F [facility] 2022 [place] 00:00:00 00:00:00 [id number] 2022-06-04 2022-06-04 [facility] [place] - [id number] [facility] 00:00:00 00:00:00 Jaime Fam MD: [address] [address], [place] [address] , Ph. 2022-04-13 2022-04-13 Outpatient Zuniga_F [facility]G MMG 2022 [place] 00:00:00 00:00:00 0130 [facility] 2022-04-13 2022-04-13 Outpatient Zuniga_F MMG MMG 2022 [place] 00:00:00 00:00:00 0131 [facility] 2022-04-13 2022-04-13 Norm [facility] [place] - [id number] [place] 00:00:00 00:00:00 Jaime Fam MD: [address] [place] [address], [place] [address] , Ph. 2022-02-17 2022-02-17 Outpatient Zuniga_F MMG MMG 2021 [place] 00:00:00 00:00:00 1206 [facility] 2022-02-17 2022-02-17 Outpatient Zuniga_F MMG MMG 2021 [place] 00:00:00 00:00:00 1207 [facility] 2022-02-17 2022-02-17 Norm [facility] [place] - [id number] [place] 00:00:00 00:00:00 Jaime Fam MD: [address] [place] [address], [place] [address] , Ph. 2022-02-13 2022-02-13 Outpatient Zuniga_F MMG MM 2021 [place] 00:00:00 00:00:00 1202 [facility] 2021-12-18 2021-12-18 Outpatient Matti_Howard MMG MMG [place] 00:00:00 00:00:00 1006 [facility] 2021-12-18 2021-12-18 Norm [facility] [place] - [id number] [place] 00:00:00 00:00:00 Coleman [facility] MD: [address] [place] [address], [place] [address] , Ph. 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 2021-10-22 2021-10-22 [place] Shirleya_F [place] - [id number] 22 [place] 00:00:00 00:00:00 Coleman Burleson 0810 irving [facility] MD: [address] [place] [phone] , Ph. 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 2021-08-25 2021-08-25 [place] Melendeziga_[place] - [id number] 22 [place] 00:00:00 00:00:00 Coleman Burleson 0613 Jaime White MD: [address] [place] [phone] , Ph. 2021-06-26 2021-06-26 Outpatient Zuniga_F MMG MMG 2021 [place] 12:19:00 12:19:00 0414 [facility] 2021-06-23 2021-06-23 Christina Zuniga_[place] - [id number] 2 [place] 00:00:00 00:00:00 Discovery Rl 0411 da PA-C: [address] [place] [phone] , Ph. 2021-06-12 2021-06-12 [place] Z[place] - [id number] 22 [place] 00:00:00 00:00:00 Coleman Burleson 0331 Jaime White MD: [address] [place] [phone] , Ph. 2021-06-04 2021-06-04 Outpatient Zuniga_F MMG MMG 2021 [place] 04:20:00 04:20:00 0323 [facility] 2021-05-07 2021-05-07 Outpatient Zuniga_F MMG MMG 2021 [place] 04:23:00 04:23:00 0223 [facility] 2021-05-01 2021-05-01 Outpatient Zuniga_F MMG MMG 2021 [place] 09:59:00 09:59:00 0217 [facility] 2021-04-30 2021-04-30 [place] Zuniga_[place] - [id number] 22 [place] 00:00:00 00:00:00 Coleman Burleson 0216 Jaime White MD: [address] [place] [phone] , Ph. 2021-03-25 2021-03-25 Outpatient Koudela_A MMG G [id number] [place] 02:01:00 02:01:00 0111 [facility] 2021-03-24 2021-03-24 [place] K[place] MM[place] - [id number] [place] 00:00:00 00:00:00 Coleman Burleson 0110 Jaime White Medical MD: [address] [place] [phone] , Ph. 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 2021-01-22 2021-01-22 Outpatient Koudela_A MMG [facility] [place] 05:01:00 05:01:00 1110 [facility] 2020-12-24 2020-12-24 Norm Koudela_A MMG [place] - [id number] [place] 00:00:00 00:00:00 Coleman Burleson 1012 Jaime White MD: [address] [place] [phone] , Ph. 2020-12-10 2020-12-10 Christina Sam[place]oudela_[place] - [id number] [place] 00:00:00 00:00:00 Discovery Rl 0928 da PA-C: [address] [place] [address] [place] [address] , Ph. 2020-12-09 2020-12-09 Outpatient Chantelluniga_F MMG [facility] 2020 [place] 10:51:00 10:51:00 0927 Medical Group 2020-10-09 2020-10-09 [place] Zuniga_[place] - [id number] 21 [place] 00:00:00 00:00:00 Coleman Burleson 0728 Jaime White Medical MD: [address] [place] [address], [place] [address] , Ph. 2020-08-15 2020-08-15 [place] Zuniga_[place] - [id number] 21 [place] 00:00:00 00:00:00 Coleman Burleson 0603 Jaime White Medical MD: [address] [place] [address], [place] [address] , Ph. 2020-05-28 2020-05-28 [place]iga_[place] - [id number] 21 [place] 00:00:00 00:00:00 Coleman Burleson 0316 Jaime White Medical MD: [address] [place] [address], [place] [address] , Ph. 2020-04-25 2020-04-25 [place] Zuniga_[place] - [id number] 21 [place] 00:00:00 00:00:00 Coleman Burlseon 0211 Jaime White Medical MD: [address] [place] [address], [place] [address] , Ph. 2020-04-23 2020-04-23 Outpatient Zuniga_F MMG MMG 2020 [place] 05:46:00 05:46:00 0209 Medical Group 2020-02-29 2020-02-29 Outpatient Zuniga_F MMG MMG [id number] [place] 06:53:00 06:53:00 1217 Medical Group 2020-02-27 2020-02-27 [place] Zuniga_[place] - [id number] 20 [place] 00:00:00 00:00:00 Coleman Burleson 1215 Jaime White MD: [address] [place] [address] 201, [place] [address] , Ph. 2020-02-07 2020-02-07 [place] - [id number] 20 [place] 00:00:00 00:00:00 Coleman Burleson 1125 Jaime White Medical MD: [address] [place] [address] 201, [place] [address] , Ph. 2020-01-31 2020-01-31 Outpatient Zuniga_F MMG MM 2019 [place] 02:38:00 02:38:00 1118 irving [facility] 2019-12-28 2019-12-28 [place] Zuniga_[place] MM[place] - [id number] 20 [place] 00:00:00 00:00:00 Coleman Burleson 1015 Jaime White MD: [address] [place] [address] 201, [place] [address] , Ph. 2019-11-30 2019-11-30 [place]iga_[place] - [id number] 20 [place] 00:00:00 00:00:00 Coleman Burleson 0917 Jaime White MD: [address] [place] [address] 201, [place] [address] , Ph. 2019-11-02 2019-11-02 [place] Zuniga_[place] - [id number] 20 [place] 00:00:00 00:00:00 Coleman Burleson 0820 Jaime White MD: [address] [place] [address] 201, [place] [address] , Ph. 2019-09-28 2019-09-28 [place] Zuniga_[place] MM[place] - [id number] 20 [place] 00:00:00 00:00:00 Coleman Burleson 0716 Jaime White MD: [address] [place] [address], [place] [address] , Ph. 2019-09-19 2019-09-19 [place] Zuniga_F MM[place] - [id number] 20 [place] 00:00:00 00:00:00 Coleman Burleson 07Jaime Kay MD: [address] [place] [address], [place] [address] , Ph. 2019-09-04 2019-09-04 Outpatient Zuniga_F MMG MMG [id number] [place] 11:51:00 11:51:00 0622 Medical Group 2019-07-31 2019-07-31 Outpatient Zuniga_F MMG MMG [id number] [place] 11:54:00 11:54:00 0518 Medical Group 2019-07-26 2019-07-26 Outpatient Zuniga_F MMG MMG [id number] [place] 06:16:00 06:16:00 0513 Medical Group 2019-07-25 2019-07-25 [place] Zuniga_[place] MM[place] - [id number] 20 [place] 00:00:00 00:00:00 Coleman Burleson 0512 Jaime White MD: [address] [place] [address], [place] [address] , Ph. 2018-12-26 2018-12-26 [place] MM[place] - [id number] 9 [place] 00:00:00 00:00:00 Coleman Velarde4 Jaime White MD: [address] [place] [address], [place] [address] , Ph. 2018-11-09 2018-11-09 [place] - [id number] 9 [place] 00:00:00 00:00:00 Coleman Burleson 0828 Jaime White Medical MD: [address] [facility] [address], [place] [address] , Ph. 2018-08-01 2018-08-01 [place] - [id number] 9 [place] 00:00:00 00:00:00 Coleman Burleson 0520 Jaime White Medical MD: [address] [facility] [address], [place] [address] , Ph. 2018-07-04 2018-07-04 [place] [facility] [place] - [id number] [place] 00:00:00 00:00:00 Coleman Burleson 0422 Jaime White Medical MD: [address] [facility] [address], [place] [address] , Ph. 2018-06-01 2018-06-01 [place] [facility] [place] - [id number] 9 [place] 00:00:00 00:00:00 Coleman Burleson 0320 Jaime White Medical MD: [address] [facility] [address], [place] [address] , Ph. 2018-04-11 2018-04-11 [place] - [id number] 9 [place] 00:00:00 00:00:00 Coleman Burleson 0128 Jaime White MD: [address] [place] [address] [address], [place] [address] , Ph. 2016-10-06 2016-10-06 Outpatient EL LAINEY, [facility] [id number] [place] 09:33:00 09:33:00 YESENIA -[id number] [facility] 2015-11-14 2015-11-14 Outpatient EL LAINEY, [facility] [id number] [place] 12:08:00 12:08:00 YESENIA -[id number] [facility] 2014-08-13 2014-08-13 Outpatient EL LAINEY, [facility] [id number] [place] 15:29:00 15:29:00 YESENIA -[id number] [facility] 2013-01-03 2013-01-03 Outpatient LATASHA RETANA, [facility] [id number] [place] 15:54:00 15:54:00 YESENIA -[id number] [facility] Results Test Description Test Time Test Comments Results Result Comments Source rapid strep group A, throat 2020-12-10 12:58:00 Test Item Value Reference Range Interpretation Comme nts Strep Result (test code = Strep Result) [facility] [Presence] in Nasopharynx by [id number] 12:58:00 Test Item Value Reference Range Interpretation Comments RSV (test code = RSV) negative [facility], [id number] 12:58:00 Test Item Value Reference Range Interpretation Comments Strep Result (test code = Strep negative Result) [facility] [Presence] in Nasopharynx by [id number] 12:58:00 Test Item Value Reference Range Interpretation Comments RSV (test code = RSV) [facility] + B and SARS CoV + SARS CoV 2 Ag panel, [place], upper respiratory [id number] 12:57:00 Test Item Value Reference Range Interpretation Comments RAPID SARS COV (test code = RAPID negative SARS COV) RAPID FLU A (test code = RAPID FLU negative A) RAPID FLU B (test code = RAPID FLU negative B) [facility] + B and SARS CoV + SARS CoV 2 Ag panel, [place], upper respiratory [id number] 12:57:00 Test Item Value Reference Range Interpretation Comments RAPID SARS COV (test code = RAPID negative SARS COV) RAPID FLU A (test code = RAPID FLU negative A) RAPID FLU B (test code = RAPID FLU negative B) [facility]2018-06-10 07:55:00 Test Item Value Reference Range Interpretation Comments Flu (test code = Flu) negative [facility]
[2022-07-23 01:01] LABS: Absolute Lymphocytes (CBC) 2.8 K/uL (0.7-4.9); Hematocrit 37.9 % (36.0-45.0); Lymphocytes % 43.9 % (15.3-44.8); MCV 96.4 fL (80-100); MPV 8.1 fL (7.6-11.3); RBC Red Blood Cell Count 3.93 M/uL (3.86-4.86)
[2022-07-23 01:02] LABS: Protime INR 0.95
[2022-07-23] MEDS ORDERED: NA CHLORIDE 0.9% 1,000 ML ONE (01:03)
[2022-07-23] MEDS ORDERED: NA CHLORIDE 0.9% 500 ML ONE (01:03)
[2022-07-23 01:20] LABS: Albumin 3.6 g/dL (3.4-5.0); Bilirubin Direct 0.1 mg/dL (0-0.2); Bilirubin Indirect, Calculated 0.3 (0.2-0.8); Bilirubin Total 0.4 mg/dL (0.2-1.0); Protein, Total 7.3 g/dL (6.4-8.2); Troponin High Sensitivity 4.9 pg/mL (<58.9)
[2022-07-23 01:23] LABS: Magnesium 2.1 mg/dL (1.6-2.4); Potassium 4.3 mEq/L (3.5-5.1)
--- NOTE | 2022-07-23 01:40 | EDPHYS ---
Physician Documentation [facility] Name: Raven Mccullough Age: 56 yrs Sex: Female : 1965 Arrival Date: 07/22/2022 Time: 23:47 Bed 19 Private MD: LILIYA Physician Germain Gloria HPI: 07/23 01:29 This 56 yrs old Female presents to ER via Ambulatory with complaints of abd mima pain, and cp. 01:29 The patient or guardian reports chest pain that is located primarily in the anterior mima chest wall, left. Onset: 14 day(s) ago. The patient presents with abdominal pain in the left upper quadrant, in the left lower quadrant, abdominal distention in the upper abdomen, in the lower abdomen. Onset: The symptoms/episode began/occurred 14 day(s) ago. The patient complains of pain in the left low back and left mid back. The pain radiates to the left low back and left mid back. Modifying factors: The symptoms are alleviated by nothing. the symptoms are aggravated by nothing. The pain does not radiate. Associated signs and symptoms: Pertinent positives: dizziness. The chest pain is described as aching, stabbing. Modifying factors: The symptoms are alleviated by nothing. the symptoms are aggravated by nothing. Severity of pain: At its worst the pain was moderate in the emergency department the pain is unchanged. Historical: - Allergies: 00:33 PENICILLINS; kl 00:33 Sulfa (Sulfonamide Antibiotics); kl - Home Meds: 00:33 Bystolic 5 mg Oral tab [Active]; Tramadol Oral [Active]; meloxicam Oral [Active]; kl phentermine oral [Active]; - PMHx: 00:33 Arthritis; Hypertension; kl - PSHx: 00:33 knee; Ligation of fallopian tube; kl - Immunization history:: Adult Immunizations up to date. - Social history:: Smoking status: Patient denies any tobacco usage or history of. - Family history:: not pertinent. ROS: 01:32 Constitutional: Negative for fever, chills, and weight loss, Eyes: Negative for injury, mima pain, redness, and discharge, ENT: Negative for injury, pain, and discharge, Neck: Negative for injury, pain, and swelling, Cardiovascular: Negative for chest pain, palpitations, and edema, Respiratory: Negative for shortness of breath, cough, wheezing, and pleuritic chest pain, Back: Negative for injury and pain, : Negative for injury, bleeding, discharge, and swelling, MS/Extremity: Negative for injury and deformity, Skin: Negative for injury, rash, and discoloration, Neuro: Negative for headache, weakness, numbness, tingling, and seizure, Psych: Negative for depression, anxiety, suicide ideation, homicidal ideation, and hallucinations, Allergy/Immunology: Negative for hives, rash, and allergies, Endocrine: Negative for neck swelling, polydipsia, polyuria, polyphagia, and marked weight changes, Hematologic/Lymphatic: Negative for swollen nodes, abnormal bleeding, and unusual bruising. 01:32 Abdomen/GI: Positive for abdominal pain, of the posterior aspect of left lateral abdomen, anterior aspect of left lateral abdomen, left upper quadrant and left lower quadrant. Exam: 01:32 Constitutional: This is a well developed, well nourished patient who is awake, alert, mima and in no acute distress. Head/Face: Normocephalic, atraumatic. Eyes: Pupils equal round and reactive to light, extra-ocular motions intact. Lids and lashes normal. Conjunctiva and sclera are non-icteric and not injected. Cornea within normal limits. Periorbital areas with no swelling, redness, or edema. ENT: Nares patent. No nasal discharge, no septal abnormalities noted. Tympanic membranes are normal and external auditory canals are clear. Oropharynx with no redness, swelling, or masses, exudates, or evidence of obstruction, uvula midline. Mucous membranes moist. Neck: Trachea midline, no thyromegaly or masses palpated, and no cervical lymphadenopathy. Supple, full range of motion without nuchal rigidity, or vertebral point tenderness. No Meningismus. Chest/axilla: Normal chest wall appearance and motion. Nontender with no deformity. No lesions are appreciated. Cardiovascular: Regular rate and rhythm with a normal S1 and S2. No gallops, murmurs, or rubs. Normal PMI, no JVD. No pulse deficits. Respiratory: Lungs have equal breath sounds bilaterally, clear to auscultation and percussion. No rales, rhonchi or wheezes noted. No increased work of breathing, no retractions or nasal flaring. Back: No spinal tenderness. No costovertebral tenderness. Full range of motion. Female : Normal external genitalia. Skin: Warm, dry with normal turgor. Normal color with no rashes, no lesions, and no evidence of cellulitis. MS/ Extremity: Pulses equal, no cyanosis. Neurovascular intact. Full, normal range of motion. Neuro: Awake and alert, GCS 15, oriented to person, place, time, and situation. Cranial nerves II-XII grossly intact. Motor strength 5/5 in all extremities. Sensory grossly intact. Cerebellar exam normal. Normal gait. Psych: Awake, alert, with orientation to person, place and time. Behavior, mood, and affect are within normal limits. 01:32 ECG was reviewed by the Attending Physician. 01:32 Abdomen/GI: Inspection: abdomen appears normal, Bowel sounds: normal, Palpation: mild abdominal tenderness, in the posterior aspect of left lateral abdomen, anterior aspect of left lateral abdomen, left upper quadrant and left lower quadrant, Liver: no appreciated palpable abnormalities, Hernia: not appreciated. Vital Signs: 00:31 BP 153 / 86; Pulse 77; Resp 18; Temp 98.2; Pulse Ox 97% on R/A; Weight 127.01 kg (R); kl Height 5 ft. 6 in. ; Pain 6/10; 01:30 BP 131 / 67; Pulse 72; Resp 23 S; Pulse Ox 96% on R/A; as6 03:21 BP 133 / 74; Pulse 73; Resp 15 S; Pulse Ox 99% on R/A; as6 00:31 Body Mass Index 45.19 (127.01 kg, 167.64 cm) kl 00:31 Pain Scale: Adult kl MDM: 00:39 Patient medically screened. mima 01:34 Differential diagnosis: abnormal EKG, acute myocardial infarction, acute pericarditis, mima anxiety, coronary artery disease chest wall pain, congestive heart failure cholecystitis, Cholelithiasis nephrolithiasis, pyelonephritis, UTI, diverticulitis, pancreatitis, hiatal hernia, pancreatitis, pulmonary embolus, stable angina, thoracic aortic disection, unstable angina, AAA, bowel obstruction, coronary artery disease, cholecystitis, Cholelithiasis, gastritis, gastroesophageal reflux disease, GI Bleed, Peptic Ulcer Disease, Pyelonephritis, Ureterolithiasis, urinary tract infection. HEART Score: History: Slightly Suspicious (0), ECG: Non specific repolarization disturbance / LBTB / PM (1), Age: > 45 and < 65 years (1), Risk Factors: > or = 3 Risk factors for atherosclerotic disease (2), [Hypercholesterolemia] [Hypertension] [+ Family HX] [Obesity] Troponin: < or = 1 x Normal Limit (0). The patient was given aspirin in the Emergency Department. JOHNIE Risk Score: 1 - Three or more CAD risk factors, TOTAL SCORE = 1. Data reviewed: vital signs, nurses notes, lab test result(s), EKG, radiologic studies, CT scan, plain films. Consideration of Admission/Observation Patient was admitted/placed on observation. Escalation of care including admission/observation considered. I considered the following discharge prescriptions or medication management in the emergency department Medications were administered in the Emergency Department. See MAR. Test considered but Not performed: MRI: no mri chest/abd/pelvis. Care significantly affected by the following chronic conditions: Hypertension, oa. Counseling: I had a detailed discussion with the patient and/or guardian regarding: the historical points, exam findings, and any diagnostic results supporting the discharge/admit diagnosis, the presence of at least one elevated blood pressure reading (>120/80) during this emergency department visit, lab results, radiology results, the need for outpatient follow up, the need for further work-up and treatment in the hospital. 07/23 00:42 Order name: Basic Metabolic Panel; Complete Time: 07/23 00:42 Order name: CBC with Diff; Complete Time: : [facility] 07/23 00:42 Order name: LFT's; Complete Time: :07/23 00:42 Order name: Magnesium; Complete Time: 07/23 00:42 Order name: NT PRO-BNP; Complete Time: :07/23 00:42 Order name: PT-INR; Complete Time: : mima 07/23 00:42 Order name: Troponin HS; Complete Time: : mima 07/23 00:42 Order name: Lipase; Complete Time: : [facility] 07/23 00:42 Order name: Urinalysis w/ reflexes; Complete Time: 03:03 [facility] 07/23 00:42 Order name: XRAY Chest (1 view) 07/23 00:42 Order name: CT Aorta for Dissection 07/23:42 Order name: EKG; Complete Time: 00:43 [facility] 07/23 00:42 Order name: Cardiac monitoring; Complete Time: [facility] 07/23 00:42 Order name: EKG - Nurse/Tech; Complete Time: [facility] 07/23 00:42 Order name: IV Saline Lock; Complete Time: [facility] 07/23 00:42 Order name: Labs collected and sent; Complete Time: [facility] 07/23 00:42 Order name: O2 Per Protocol; Complete Time: [facility] 07/23 00:42 Order name: O2 Sat Monitoring; Complete Time: [facility] EC:32 Rate is 72 beats/min. Rhythm is regular. QRS [place] is Normal. NM interval is normal. QRS mima interval is normal. QT interval is normal. No Q waves. T waves are Normal. No ST changes noted. Clinical impression: NSR w/ Non-specific ST/T Changes and No evidence of ischemia. Interpreted by me. Reviewed by me. Administered Medications: 00:51 Not Given (Duplicate Order): NS 0.9% IV 1000 ml IV at 125 ml/hr continuous jb4 01:05 Drug: NS 0.9% IV 500 ml Route: IV; Rate: bolus; Site: right forearm; jb4 03:31 Follow up: Response: No adverse reaction; IV Status: Completed infusion; IV Intake: as6 500ml 01:05 Drug: NS 0.9% IV 1000 ml Route: IV; Rate: 125 ml/hr; Site: right forearm; jb4 03:32 Follow up: Response: No adverse reaction; IV Status: Infusion continued upon admission; as6 IV Intake: 400ml 03:20 Drug: Aspirin PO Chewable Tablet 324 mg Route: PO; as6 03:31 Follow up: Response: No adverse reaction as6 Disposition Summary: 07/23/22 01:39 Hospitalization Ordered Hospitalization Status: Observation mima Location: Telemetry/MedSurg (observation) mima Condition: Fair mima Problem: new mima Symptoms: have improved mima Bed/Room Type: Standard mima Provider: Gabriel Fountain(07/23/22 02:48) la1 Room Assignment: 412(07/23/22 03:17) cg Diagnosis - Obesity, unspecified mima - Chest pain, unspecified mima - Abdominal pain, Generalized mima - Essential (primary) hypertension mima Forms: - Medication Reconciliation Form mmia - SBAR form mima Signatures: Dispatcher [employer] Marina Gallardo, RN RN Germain Cota MD MD cha Attema, Lee, [employer]CTOR-C [employer] INSTRUCTOR-Emilie1 Terra Melendez RN RN cg Osvaldo Parr RN RN jb4 Ascencion Lei RN RN as6 Corrections: (The following items were deleted from the chart) 02:48 01:39 [place] Padilla cha la1 03:17 01:39 mima
--- NOTE | 2022-07-23 01:40 | ER ---
Nurse's Notes [facility] Name: Raven Mccullough Age: 56 yrs Sex: Female : 1965 Arrival Date: 07/22/2022 Time: 23:47 Bed 19 Private MD: Diagnosis: Obesity, unspecified;Chest pain, unspecified;Abdominal pain, Generalized;Essential (primary) hypertension Presentation: 07/23 00:31 Chief complaint: Patient states: left flank abdominal pain worsening this evening kl recently diagnosed with splenic artery aneurysm. Coronavirus screen: Vaccine status: Patient reports receiving the 2nd dose of the covid vaccine. Ebola Screen: Patient negative for fever greater than or equal to 101.5 degrees Fahrenheit, and additional compatible Ebola Virus Disease symptoms. Initial Sepsis Screen: Does the patient meet any 2 criteria? No. Patient's initial sepsis screen is negative. Does the patient have a suspected source of infection? No. Patient's initial sepsis screen is negative. Risk Assessment: Do you want to hurt yourself or someone else? Patient reports no desire to harm self or others. Onset of symptoms was July 23, 2022. 00:31 Method Of Arrival: Ambulatory kl 00:31 Acuity: LUZ 3 kl Triage Assessment: 00:34 General: Appears uncomfortable, well groomed, well developed, Behavior is calm, kl cooperative. Pain: Complains of pain in left upper quadrant and left lower quadrant Pain radiates to left shoulder Pain currently is 6 out of 10 on a pain scale. at worst was 10 out of 10 on a pain scale. Historical: - Allergies: 00:33 PENICILLINS; kl 00:33 Sulfa (Sulfonamide Antibiotics); kl - Home Meds: 00:33 Bystolic 5 mg Oral tab [Active]; Tramadol Oral [Active]; meloxicam Oral [Active]; kl phentermine oral [Active]; - PMHx: 00:33 Arthritis; Hypertension; kl - PSHx: 00:33 knee; Ligation of fallopian tube; kl - Immunization history:: Adult Immunizations up to date. - Social history:: Smoking status: Patient denies any tobacco usage or history of. - Family history:: not pertinent. Screenin:06 [facility] ED Fall Risk Assessment (Adult) History of falling in the last 3 months, jb4 including since admission No falls in past 3 months (0 pts) Confusion or Disorientation No (0 pts) Score/Fall Risk Level 0 - 2 = Low Risk Oriented to surroundings, Maintained a safe environment. Abuse screen: Denies threats or abuse. Nutritional screening: No deficits noted. Tuberculosis screening: No symptoms or risk factors identified. Assessment: 01:06 General: Appears in no apparent distress. uncomfortable, Behavior is calm, cooperative, jb4 appropriate for age. Pain: Complains of pain in Left flank Pain radiates to left scapular area Pain currently is 6 out of 10 on a pain scale. Neuro: Level of Consciousness is awake, alert, obeys commands, Oriented to person, place, time, situation. Cardiovascular: Patient's skin is warm and dry. Respiratory: Airway is patent Respiratory effort is even, unlabored, Respiratory pattern is regular, symmetrical. GI: No signs and/or symptoms were reported involving the gastrointestinal system. : No signs and/or symptoms were reported regarding the genitourinary system. EENT: No signs and/or symptoms were reported regarding the EENT system. Derm: Skin is intact, Skin is pink, warm \T\ dry. Musculoskeletal: Circulation, motion, and sensation intact. Range of motion: intact in all extremities. Vital Signs: 00:31 BP 153 / 86; Pulse 77; Resp 18; Temp 98.2; Pulse Ox 97% on R/A; Weight 127.01 kg (R); kl Height 5 ft. 6 in. ; Pain 6/10; 01:30 BP 131 / 67; Pulse 72; Resp 23 S; Pulse Ox 96% on R/A; as6 03:21 BP 133 / 74; Pulse 73; Resp 15 S; Pulse Ox 99% on R/A; as6 00:31 Body Mass Index 45.19 (127.01 kg, 167.64 cm) kl 00:31 Pain Scale: Adult kl ED Course: 00:26 Patient arrived in ED. ja2 00:33 Triage completed. kl 00:39 Germain Gloria MD is Attending Physician. mima 00:59 XRAY Chest (1 view) In Process Unspecified. EDMS 01:06 Patient has correct armband on for positive identification. Bed in low position. Call jb4 light in reach. Side rails up X 1. Client placed on continuous cardiac and pulse oximetry monitoring. NIBP monitoring applied. hospital monitor on. 01:06 Initial lab(s) drawn, by me, sent to lab. Inserted saline lock: 22 gauge in right jb4 forearm, using aseptic technique. Blood collected. 01:09 Osvaldo Parr, RN is Primary Nurse. jb4 01:38 Chico Padilla MD is Hospitalizing Provider. mima 02:17 CT Aorta for Dissection In Process Unspecified. EDMS 02:48 Gabriel Fountain MD is Hospitalizing Provider. la1 03:20 No provider procedures requiring assistance completed. Patient admitted, IV remains in as6 place. 03:22 Arm band placed on. as6 Administered Medications: 00:51 Not Given (Duplicate Order): NS 0.9% IV 1000 ml IV at 125 ml/hr continuous jb4 01:05 Drug: NS 0.9% IV 500 ml Route: IV; Rate: bolus; Site: right forearm; jb4 03:31 Follow up: Response: No adverse reaction; IV Status: Completed infusion; IV Intake: as6 500ml 01:05 Drug: NS 0.9% IV 1000 ml Route: IV; Rate: 125 ml/hr; Site: right forearm; jb4 03:32 Follow up: Response: No adverse reaction; IV Status: Infusion continued upon admission; as6 IV Intake: 400ml 03:20 Drug: Aspirin PO Chewable Tablet 324 mg Route: PO; as6 03:31 Follow up: Response: No adverse reaction as6 Medication: 01:06 VIS not applicable for this client. jb4 Intake: 03:31 IV: 500ml; Total: 500ml. as6 03:32 IV: 400ml; Total: 900ml. as6 Outcome: 01:39 Decision to Hospitalize by Provider. mima 03:22 Admitted to Tele accompanied by tech, family with patient, via wheelchair, with chart. as6 03:22 Condition: stable 03:22 Instructed on the need for admit. 03:44 Patient left the ED. as6 Signatures: Dispatcher [employer] Marina Gallardo, Germain Burgos RN, MD MD cha Attema, Lee, ADOBE LAYER HELPER-C ADOBE LAYER HELPER-Cla1 Osvaldo Parr, PASCUAL RN jb4 Kati Johnson Ashby, RN RN as6
[2022-07-23 03:00] LABS: Specific Gravity > 1.030 (1.005-1.030); Urine Bacteria None Seen /HPF (<20); Urine Bilirubin NEGATIVE (Negative); Urine Blood Negative (Negative); Urine Clarity Clear (Clear); Urine Color Yellow (Yellow); Urine Glucose NEGATIVE (Negative); Urine Mucus Slight /HPF (None Seen); Urine Protein TRACE (Negative); Urine RBC <5 /HPF (None Seen); Urine Urobilinogen 1+ (Normal); Urine pH 5.5 (5.0-7.0)
[2022-07-23] MEDS ORDERED: ASPIRIN 81 MG CHEWABLE TABLET ONE (03:26)
--- NOTE | 2022-07-23 03:40 | P.HP ---
Certification for Inpatient Patient admitted to: Observation With expected LOS: <2 Midnights Patient will require the following post-hospital care: None Practitioner: I am a practitioner with admitting privileges, knowledge of patient current condition, hospital course, and medical plan of care. Services: Services provided to patient in accordance with Admission requirements found in Title 42 Section 412.3 of the Code of Federal Regulations Patient History Date of Service: 07/23/22 Reason for admission: Chest pain History of Present Illness: 56-year-old female with history of arthritis, hypertension presents emergency department with chief complaint of left-sided abdominal pain, chest pain. She reports he has been having intermittent left-sided abdominal pain for the last 2 to 3 weeks, she was treated for UTI recently, she also had a previous CT scan department at outside hospital as a suspected she had a kidney stone at that time which reportedly showed a splenic artery aneurysm she cannot recall if it was 1.5 or 1.9 cm. She reports that the chest pain is new and began this evening while at rest she describes as sharp radiating to the left arm lasting for 5 to 10 minutes that time. Last chest test about 7 years ago has never had heart catheterization initial high-sensitivity troponin negative EKG without STEMI criteria CT angio for dissection was performed which was negative for acute findings, ED provider wishes to admit under observation for ACS rule out. 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 moist/pink, EOMI, Sclerae nonicteric Neck: Supple, 2+ carotid pulse no bruit, No LAD, Without JVD or thyroid abnormality Respiratory: Clear to auscultation bilaterally, Normal air movement Cardiovascular: Regular rate/rhythm, Normal S1 S2 Gastrointestinal: Normal bowel sounds, No tenderness Musculoskeletal: No tenderness Integumentary: No rashes Neurological: Normal gait, Normal speech, Normal strength at 5/5 x4 extr, Normal tone, Normal affect Lymphatics: No axilla or inguinal lymphadenopathy - Studies Laboratory Data (last 24 hrs) 07/23/22 00:50: PT 10.5, INR 0.95 07/23/22 00:50: WBC 6.40, Hgb 12.8, Hct 37.9, Plt Count 301 07/23/22 00:50: Sodium 138, Potassium 4.3, BUN 31 H, Creatinine 0.87, Glucose 113 H, Magnesium 2.1, Total Bilirubin 0.4, AST 36, ALT 70 H, Alkaline Phosphatase 140 H, Lipase 95 H Assessment and Plan - Plan Assessment: Chest pain rule out ACS Hypertension Left-sided abdominal pain Plan: Chest pain rule out ACS Trend troponin, monitor on telemetry, cardiology consult in place. Given aspirin in ED, continue aspirin, statin, will obtain lipid panel, A1c. Hypertension Continue Bystolic Left-sided abdominal pain Unclear etiology, CT unremarkable patient does report pain worsened after eating but states she does not feel as if it is reflux. Protonix added recommended outpatient follow-up with GI. DVT PPX: Lovenox Code status: Full Discharge Plan: Home Plan to discharge in: 24 Hours - Advance Directives Does patient have a Living Will: No Does patient have a Durable POA for Healthcare: No - Code Status/Comfort Care Code Status Assessed: Yes (Full code) Critical Care: No Time Spent Managing Pts Care (In Minutes): 55
[2022-07-23] MEDS ORDERED: ONDANSETRON 4 MG/2 ML VIAL IV PRN (03:57)
[2022-07-23 06:25] VITALS: BMI 45.1
[2022-07-23] MEDS ORDERED: PANTOPRAZOLE 40MG TABLET PO SCH (06:30)
[2022-07-23 07:53] LABS: Troponin High Sensitivity 5.4 pg/mL (<58.9)
[2022-07-23 07:55] LABS: Thyroid Stimulating Hormone 3.89 uIU/mL (0.358-3.740)
[2022-07-23] MEDS ORDERED: ENOXAPARIN 40 MG/0.4 ML SQ SCH (09:00)
[2022-07-23] MEDS ORDERED: NEBIVOLOL HCL 5 MG TAB PO SCH (09:00)
[2022-07-23] MEDS: ACETAMINOPHEN 325 MG TABLET PO PRN ×2 (09:33→15:24)
--- NOTE | 2022-07-23 11:26 | RAD REPORT ---
EXAM DESCRIPTION: CT - Angio Aorta For Dissection - 07/23/2022 7:02 am CLINICAL HISTORY: 56 years, Female, ABD PAIN COMPARISON: 01/02. TECHNIQUE: Multiple transaxial tomograms of the thoracic and abdominal aorta from the lung apex to t he ischial tuberosities utilizing 3 mm slice thickness at 3 mm interval reconstruction after the admi nistration of large bolus of IV contrast for complete opacification of the thoracic, abdominal aorta and iliac arteries. 2-D and 3-D multiplanar reformats, volume rendering technique and maximum intensity projection images were generated and reviewed. This exam was performed according to our departmental dose-optimization protocol, which includes auto mated exposure control, adjustment of the mA and/or kV according to patient size and/or use of iterat shen reconstruction technique. FINDINGS: Thoracic aorta: There thoracic aorta demonstrate to be within normal limits. No evidence for dissection/or aneurysm. Normal branching great vessels proximal aspect. Abdominal aorta: The abdominal aorta demonstrate to be within normal limits. Very minimal atheromatous plaque. There i s no evidence for aneurysm/or dissection. Both iliac arteries demonstrate to be patent with no eviden ce for significant stenosis and/or occlusion. Celiac trunk, superior mesenteric artery and inferior mesenteric artery demonstrate to patent with no evidence for significant stenosis/or occlusion. There are single bilateral renal arteries with no evidence for significant stenosis/or occlusion. Chest: The lung parenchyma demonstrate demonstrate to be clear. No significant pulmonary nodules/or masses a re identified. There is minimal dependent atelectatic changes posterior CP angles The trachea mainste m bronchus demonstrate to be unremarkable. There is no pleural/or pericardial effusions. The heart is normal in size. The central portions of the pulmonary arteries demonstrate normal opacification with no evidence for significant filling defects that will suggest pulmonary embolus. There is no signifi cant mediastinal and/or hilar lymphadenopathy. The axillary regions demonstrate to be clear. The bone windows demonstrate no significant skeletal lesions. Abdomen and pelvis: The liver demonstrate decreased attenuation corresponding to fatty infiltration. Otherwise the liver, gallbladder, spleen, adrenal glands, pancreas demonstrate to be unremarkable. The kidneys demonstrate normal uptake and excretion of contrast media. Grossly the unopacified stomach, small bowel and large bowel demonstrate unremarkable. There is minim al high density material within the left site colon for which the possibility of previous upper GI st udy could be of consideration. The appendix is unremarkable. There is very minimal diverticulosis wit hin the signal:. The urinary bladder was partially distended with no gross abnormalities. The uterus is unremarkable. There are no adnexal masses. There is no retroperitoneal lymphadenopathy. There is no evidence for as cites. The bone windows demonstrate no significant skeletal lesions. IMPRESSION: No evidence for significant stenosis and/or dissection involving the thoracic or abdomin al aorta. No evidence for significant pulmonary embolus. Fatty infiltration of the liver. Minimal high density material within the left site colon for which the possibility of previous upper GI study could be of consideration. Minimal diverticulosis sigmoid colon. Electronically signed by: Chay Theodore MD 07/23/2022 2:41 AM CDT Due to temporary technical issues with the PACS/Fluency reporting system, reports are being signed by the in house radiologists without review as a courtesy to insure prompt reporting. The interpreting radiologist is fully responsible for the content of the report.
--- NOTE | 2022-07-23 12:54 | CON ---
Date of Consultation: 07/23/[address] Fountain on 07/23/2022. Reason For Consultation: Atypical chest pain. History Of Present Illness: Ms. Mccullough is 56. Has a history of hypertension, obesity, comes in with lower abdominal pain that travels all the way to the mid epigastric region and then went up to the l eft side of the chest, left lateral chest, was sharp, was stabbing, was severe. No nausea, vomiting, diaphoresis, PND, orthopnea, pedal edema, palpitation, or syncope. Workup so far has been negative. She does have a history of abdominal aortic aneurysm that was discovered recently, but apparently i t is small and she has an appointment with a vascular surgeon in [place] in the near future. She has a primary care physician in [place]. Allergies: SHE IS ALLERGIC TO PENICILLIN AND SULFA. Review of Systems: Negative. Social History: Negative. Family History: Negative. Medication: At home includes Bystolic. Physical Examination: Vital Signs: Stable. Afebrile. Sinus rhythm. No acute distress. HEENT: Negative. Neck: Supple. No bruit. Chest: Clear. Cardiac: Revealed a regular rhythm and rate. No murmurs, gallops, or rubs. Abdomen: Benign. Extremities: Revealed no clubbing, cyanosis, or edema. Diagnostic Data: All within normal limit. Impression And Plan: Noncardiac pain, most likely secondary to musculoskeletal pain or abdominal jack n that was pain. EKG is unremarkable. Chest x-ray is unremarkable. Laboratory evaluatio n unremarkable and certainly not concerned about this pain being cardiac. I am comfortable with her being evaluated by GI. Continue care by Dr. Fountain. From my standpoint, she can go home whenever it is okay with Dr. Fountain. If her pain becomes an issue down the road, would be happy to see her as an outpatient. JOHN/ACE Voice ID: [id number] Report ID: [id number]
--- NOTE | 2022-07-23 14:26 | EKG ---
Test Date: 2022-07-23 Test Time: 00:59:52 Industrial Equipment Mechanic: AMILCAR MEASUREMENT RESULTS: Intervals: Rate: 72 NJ: 146 QRSD: 86 QT: 404 QTc: 442 E[place]kine: P: 42 NJ: 146 QRS: -23 T: 45 INTERPRETIVE STATEMENTS: Normal sinus rhythm Cannot rule out Anterior infarct, age undetermined Abnormal ECG Compared to ECG 12/16/2020 08:54:57 No significant changes Electronically Signed On 07-23-22 14:25:33 CDT by Abhinav Garrido
--- NOTE | 2022-07-23 15:25 | P.DS ---
Admission Date: 07/23/22 Discharge Date: 07/23/22 Primary Care Provider: Myles Disposition: ROUTINE DISCHARGE Discharge Condition: GOOD Reason for Admission: Chest pain Consultations: 1. Cardiology 2. Gastroenterology Hospital Course: DIAGNOSES: # Chest Pain - noncardiac # Minimal High Density Material within the Left Side Colon # Hypertension # Dyslipidemia # Non-Alcoholic Fatty Liver Disease # Morbid Obesity - BMI 45.2 kg/m2 HOSPITAL COURSE: Ms. Raven Mccullough is a pleasant 56-year-old female with a past medical history significant for hypertension who was admitted to the [facility] on 07/23/2022 for chest pain. She was admitted to the Medicine service. Her EKG was without STEMI criteria. Her troponin trend was 4.9, 5.4, and 4.4, respectively. Her chest x-ray revealed, "no acute findings in the chest." Cardiology was consulted and she was seen by Dr. Marquez. He has cleared her for discharge with outpatient transthoracic echocardiogram. Her CT chest angiogram revealed, "no evidence for significant stenosis and/or dissection involving the thoracic or abdominal aorta. No evidence for significant pulmonary embolus. Fatty infiltration of the liver. Minimal high density material within the left site colon for which the possibility of previous upper GI study could be of consideration. Minimal diverticulosis sigmoid colon." Gastroenterology was consulted and she was evaluated by Dr. Tafoya. He has cleared her for discharge with outpatient follow-up. Incidentally, during her evaluation, she was found to have fatty liver disease and dyslipidemia. She was started on rosuvastatin. She was advised to schedule a repeat lipid panel and LFTs with her PCP in 4 weeks prior to any medication re fills. She was also counseled to follow-up with Dr. Tafoya regarding her CT abnormality and her fatty liver disease. She was counseled that, until further evaluation can be done, a colonic malignancy needs to be excluded. She verbalized understanding and agreed this appointment. On 07/23/2022, she was seen on rounds and deemed medically stable for discharge. She was discharged with instructions to schedule follow-up appointments with her PCP (Dr. Bueno), with Cardiology (Dr. Marquez), and with Gastroenterology (Dr. Tafoya). She was provided a prescription for rosuvastatin. She was given the opportunity to ask questions and reported no further questions. Furthermore, all questions were answered to the best of my ability. A copy of this discharge summary will be sent to the above providers to facilitate continuity of care. Today, I personally spent 25 minutes on her case, of which greater than 50% of the time was spent in patient education, counseling, and coordination of care as described above. Vital Signs/Physical Exam: Temp Pulse Resp BP Pulse Ox 97.3 F 72 16 132/63 96 07/23/22 12:00 07/23/22 12:00 07/23/22 12:00 07/23/22 12:00 07/23/22 12:00 General: Alert, In no apparent distress, Oriented x3 HEENT: Atraumatic, Mucous membr. moist/pink, Sclerae nonicteric Neck: JVD not distended Respiratory: Clear to auscultation bilaterally, Normal air movement Cardiovascular: No edema, Regular rate/rhythm, Normal S1 S2, No gallops, No rubs, No murmurs Gastrointestinal: Normal bowel sounds, Soft and benign, Non-distended, No tenderness, No rebound, No guarding Musculoskeletal: No clubbing Integumentary: No rashes Neurological: Normal speech, Normal affect Laboratory Data at Discharge: WBC 6.40 thou/uL (4.3-10.9) 07/23/22 00:50 Hgb 12.8 g/dL (12.0-15.0) 07/23/22 00:50 Hct 37.9 % (36.0-45.0) 07/23/22 00:50 Plt Count 301 thou/uL (152-406) 07/23/22 00:50 PT 10.5 SECONDS (9.5-12.5) 07/23/22 00:50 INR 0.95 07/23/22 00:50 Sodium 138 mEq/L (136-145) 07/23/22 00:50 Potassium 4.3 mEq/L (3.5-5.1) 07/23/22 00:50 BUN 31 mg/dL (7-18) H 07/23/22 00:50 Creatinine 0.87 mg/dL (0.55-1.02) 07/23/22 00:50 Glucose 113 mg/dL (74-106) H 07/23/22 00:50 Magnesium 2.1 mg/dL (1.6-2.4) 07/23/22 00:50 Total Bilirubin 0.4 mg/dL (0.2-1.0) 07/23/22 00:50 AST 36 U/L (15-37) 07/23/22 00:50 ALT 70 U/L (13-56) H 07/23/22 00:50 Alkaline Phosphatase 140 U/L (45-117) H 07/23/22 00:50 Triglycerides 200 mg/dL (<150) H 07/23/22 07:19 Cholesterol 236 mg/dL (<200) H 07/23/22 07:19 HDL Cholesterol 43 mg/dL (40-60) 07/23/22 07:19 Cholesterol/HDL Ratio 5.49 07/23/22 07:19 Lipase 95 U/L (13-75) H 07/23/22 00:50 Home Medications: Diclofenac Na [Voltaren D.r*] 75 mg PO BID 07/24/20 traMADol HCL [Ultram*] 50 mg PO TID 07/24/20 Nebivolol HCl [Bystolic] 10 mg PO DAILY 07/26/20 Rosuvastatin Calcium 5 mg PO BEDTIME #30 tab 07/23/22 New Medications: Rosuvastatin Calcium 5 mg PO BEDTIME #30 tab Physician Discharge Instructions: 1. Please call and schedule a follow-up appointment your PCP (Dr. Bueno) 3-5 days - Your cholesterol was high and you were started on a medication called rosuvastatin - Please have him repeat your liver and cholesterol levels in about 4 weeks, so that he can adjust/refill your rosuvastatin 2. Please call and schedule a follow-up appointment Gastroenterology (Dr. Tafoya) 3-5 days - Please have him follow-up on the spot in your colon and your liver 3. Please call and schedule a follow-up appointment Cardiology (Dr. Marquez) 5- 7 days Diet: AHA Activity: Ad za Followup: Norm Bueno MD [OUTSIDE PHYSICIAN] - Demetrius Marquez MD [ACTIVE - CAN ADMIT] - Diogo Tafoya MD [ASSOCIATE-ACTIVE - CAN ADMIT] - Time spent managing pt's care (in minutes): 25
[2022-07-23 16:46] VITALS: BP 167/78; TEMP 98
--- NOTE | 2022-07-23 16:49 | RAD REPORT ---
EXAM DESCRIPTION: RAD - Chest Single View - 07/23/2022 12:57 am CLINICAL HISTORY: The patient is 56 years old and is Female; CHEST PAIN [facility] MAIN TECHNIQUE: Frontal view of the chest. COMPARISON: No relevant prior studies available. FINDINGS: LUNGS: Unremarkable. No consolidation. PLEURAL SPACE: Unremarkable. No pleural effusion. No pneumothorax. HEART: See below. MEDIASTINUM: Prominence of the cardiomediastinal silhouette, likely exaggerated secondary to portab le technique, lordotic positioning, and patient body habitus. BONES/JOINTS: Unremarkable. IMPRESSION: No acute findings in the chest. Electronically signed by: Jose Manuel Weldon MD 07/23/2022 1:11 AM CDT Due to temporary technical issues with the PACS/Fluency reporting system, reports are being signed by the in house radiologists without review as a courtesy to insure prompt reporting. The interpreting radiologist is fully responsible for the content of the report.
[2022-07-23 19:27] VITALS: O2SAT 96
[2022-07-23] MEDS ORDERED: ATORVASTATIN 40 MG TAB PO SCH (21:00)
[2022-07-24] MEDS ORDERED: ASPIRIN EC 81 MG TAB PO SCH (09:00)
== END 2022-07-23 16:47 | disposition home or self-care (01) ==
LOC: ER 23:47 → ERHOLD 07-23 03:12 → 4TH 07-23 03:18
PROVIDERS: ADMIT Internal Medicine; ATTEND Internal Medicine
DX: R07.89 Other chest pain (principal); I10 Essential (primary) hypertension; R10.9 Unspecified abdominal pain; E66.9 Obesity, unspecified; K76.0 Fatty (change of) liver, not elsewhere classified; K63.89 Other specified diseases of intestine; E78.5 Hyperlipidemia, unspecified; E66.01 Morbid (severe) obesity due to excess calories; Z68.42 Body mass index [BMI] 45.0-49.9, adult; Z88.0 Allergy status to penicillin; Z88.2 Allergy status to sulfonamides
CPT/HCPCS: 96361; 93005; 85025; 81001; 80048; 36415; 83735; 85610; 80061; 80076; 84443; 83036; 84484 ×3; 84439; 83690; 83880; 71275; 74175; 71045; 96360; 99285; Q9967; J1650; J7040; J7030; G0378 ×2

== ENCOUNTER 2022-08-19 06:52 | Day surgery (SDC) | payer OTHER ==
[2022-08-19] MEDS ORDERED: Ringers Lactate 1,000 ML IV ONE (07:29)
[2022-08-19] MEDS ORDERED: propofoL 200 MG/20 ML VIAL IV ONE ×2 (08:25)
[2022-08-19] MEDS ORDERED: LIDOCAINE 1% MPF 5 ML VIAL ONE (08:26)
[2022-08-19 09:38] VITALS: TEMP 96.9
[2022-08-19 09:59] VITALS: BP 127/83; O2SAT 100
== END 2022-08-19 09:50 | disposition home or self-care (01) ==
LOC: OR 06:52
PROVIDERS: ATTEND Internal Medicine Gastroenterology
PROC: 0DBF8ZX Excision of Right Large Intestine, Via Natural or Artificial Opening Endoscopic, Diagnostic (ICD-10-PCS; 2022-08-19)
PROC: 0DBG8ZX Excision of Left Large Intestine, Via Natural or Artificial Opening Endoscopic, Diagnostic (ICD-10-PCS; 2022-08-19)
PROC: 0DB68ZX Excision of Stomach, Via Natural or Artificial Opening Endoscopic, Diagnostic (ICD-10-PCS; 2022-08-19)
PROC: 0DB88ZX Excision of Small Intestine, Via Natural or Artificial Opening Endoscopic, Diagnostic (ICD-10-PCS; 2022-08-19)
PROC: 0DB78ZX Excision of Stomach, Pylorus, Via Natural or Artificial Opening Endoscopic, Diagnostic (ICD-10-PCS; 2022-08-19)
PROC: 0DBB8ZX Excision of Ileum, Via Natural or Artificial Opening Endoscopic, Diagnostic (ICD-10-PCS; principal; 2022-08-19 08:15)
PROC: 0DBP8ZX Excision of Rectum, Via Natural or Artificial Opening Endoscopic, Diagnostic (ICD-10-PCS; 2022-08-19 08:15)
DX: R10.32 Left lower quadrant pain (principal); R10.12 Left upper quadrant pain; K59.09 Other constipation; R19.7 Diarrhea, unspecified; K92.1 Melena; R14.0 Abdominal distension (gaseous); R53.83 Other fatigue; K64.8 Other hemorrhoids; K29.50 Unspecified chronic gastritis without bleeding; K52.9 Noninfective gastroenteritis and colitis, unspecified; K29.80 Duodenitis without bleeding; K25.9 Gastric ulcer, unspecified as acute or chronic, without hemorrhage or perforation
CPT/HCPCS: 88312; 88305; 45380; 44377; J2704 ×2; J2001; J7120